=== PATIENT | female | born 1940 | race Caucasian/White ===

== ENCOUNTER 2016-03-18 12:13 | Emergency (ER) | payer MEDICARE ==
[2014-12-31 05:45] VITALS: BMI 43.1
[~2016-03-18 12:13] MED LIST: ARICEPT5 MG PO; ASPIRIN81 MG PO; ATIVAN0.5 MG PO; BRILINTA90 MG PO; CELEXA20 MG PO; GLUCOPHAGE1000 MG PO; LANTUS SOL100 UNIT/1 SC; LOPRESSOR25 MG PO; NAPROSYN500 MG PO; NORCO 10/325 TA1 TA1 PO; NORCO 7.5/325 T1 TA1 PO; POTASSIUM99 M1 PO; PRAVACHOL10 MG PO; QVAR8.7 G1 INH; ROBAXIN500 MG PO; TYLENOL W/CODEI1 TAB PO; ZANAFLEX4 MG PO
[2016-03-18 13:13] LABS: BASOPHILS 0.2 % (0.0-2.0); EOSINOPHILS 4.4 % (0-7); HEMATOCRIT 36.1 % (36.0-48.0); IMMATURE GRANULOCYTES 0.1 % (0-5); LYMPHOCYTES 28.6 % (15-50); MCH 27.7 pg (26.0-34.0); MCHC 30.5 g/dL (31.0-37.0); MCV 90.9 fL (80.0-100.0); MEAN PLATELET VOLUME 10.4 fL (7.4-10.4); MONOCYTES 9.3 % (2-11); NEUTROPHILS 57.4 % (40-80); RBC 3.97 10x6/uL (4.00-5.40); RDW 14.3 % (11.5-14.5); WBC 8.2 10x3/uL (4.8-10.8)
[2016-03-18 13:17] LABS: PLATELET COUNT 250 10x3/uL (130-400)
[2016-03-18 13:42] LABS: ALBUMIN 3.3 g/dL (3.4-5.0); ANION GAP 9.4 mmol/L (8-16); BILIRUBIN - TOTAL 0.26 mg/dL (0.2-1.3); CALCIUM 9.6 mg/dL (8.5-10.1); CARBON DIOXIDE 30.4 mmol/L (21.0-32.0); CREATININE - SERUM 1.1 mg/dL (0.6-1.3); POTASSIUM - SERUM 4.8 mmol/L (3.5-5.1); PROTEIN - SERUM 6.8 g/dL (6.4-8.2)
== END 2016-03-18 14:20 | disposition home or self-care (01) ==
LOC: D.ER 12:13
PROVIDERS: Emergency Medicine
DX: J20.9 Acute bronchitis, unspecified (principal); I50.9 Heart failure, unspecified; I10 Essential (primary) hypertension; J45.909 Unspecified asthma, uncomplicated; I25.10 Atherosclerotic heart disease of native coronary artery without angina pectoris; E11.9 Type 2 diabetes mellitus without complications; Z79.4 Long term (current) use of insulin

== ENCOUNTER 2016-05-27 19:06 | Emergency (ER) | payer MEDICARE ==
[2014-12-31 05:45] VITALS: BMI 43.1
[2016-05-27 19:59] LABS: BASOPHILS 0.2 % (0.0-2.0); EOSINOPHILS 2.2 % (0-7); HEMATOCRIT 35.8 % (36.0-48.0); HEMOGLOBIN 11.1 g/dL (12-16); IMMATURE GRANULOCYTES 0.2 % (0-5); MCV 93.5 fL (80.0-100.0); MEAN PLATELET VOLUME 10.6 fL (7.4-10.4); MONOCYTES 9.2 % (2-11); NEUTROPHILS 55.2 % (40-80); PLATELET COUNT 190 10x3/uL (130-400); RBC 3.83 10x6/uL (4.00-5.40); RDW 14.7 % (11.5-14.5)
[2016-05-27 20:14] LABS: ALBUMIN 3.6 g/dL (3.4-5.0); ANION GAP 8.9 mmol/L (8-16); BILIRUBIN - TOTAL 0.3 mg/dL (0.2-1.3); CALCIUM 9.3 mg/dL (8.5-10.1); CARBON DIOXIDE 30.7 mmol/L (21.0-32.0); CREATININE - SERUM 1.7 mg/dL (0.6-1.3); POTASSIUM - SERUM 4.6 mmol/L (3.5-5.1)
== END 2016-05-27 23:29 | disposition home or self-care (01) ==
LOC: D.ER 19:06
PROVIDERS: Emergency Medicine
DX: M25.512 Pain in left shoulder (principal); M25.562 Pain in left knee; M54.2 Cervicalgia; N28.9 Disorder of kidney and ureter, unspecified; I25.10 Atherosclerotic heart disease of native coronary artery without angina pectoris; E11.9 Type 2 diabetes mellitus without complications; Z79.4 Long term (current) use of insulin; I10 Essential (primary) hypertension; Z91.81 History of falling

== ENCOUNTER 2016-12-27 10:43 | Emergency (ER) | payer MEDICARE ==
[2014-12-31 05:45] VITALS: BMI 43.1
[2016-12-27 11:58] LABS: BASOPHILS 0.1 % (0-2); HEMATOCRIT 35.6 % (36.0-48.0); HEMOGLOBIN 11.4 g/dL (12-16); IMMATURE GRANULOCYTES 0.2 % (0-5); LYMPHOCYTES 17.4 % (15-50); MCH 30.5 pg (26.0-34.0); MCV 95.2 fL (80.0-100.0); MONOCYTES 9.5 % (2-11); NEUTROPHILS 71.8 % (40-80); RBC 3.74 10x6/uL (4.00-5.40); RDW 14.6 % (11.5-14.5); WBC 8.4 10x3/uL (4.8-10.8)
[2016-12-27 11:59] LABS: PLATELET COUNT 240 10x3/uL (130-400)
[2016-12-27 12:25] LABS: ALBUMIN 3.2 g/dL (3.4-5.0); ANION GAP 9.5 mmol/L (8-16); BILIRUBIN - TOTAL 0.17 mg/dL (0.2-1.3); CARBON DIOXIDE 28.8 mmol/L (21.0-32.0); CREATININE - SERUM 1.6 mg/dL (0.6-1.3); POTASSIUM - SERUM 5.3 mmol/L (3.5-5.1); PROTEIN - SERUM 6.6 g/dL (6.4-8.2)
== END 2016-12-27 18:00 | disposition home or self-care (01) ==
LOC: D.ER 10:43
PROVIDERS: Physician Assistant
DX: I95.1 Orthostatic hypotension (principal); M25.551 Pain in right hip; M25.552 Pain in left hip; M54.5 Low back pain; M25.561 Pain in right knee; Z86.79 Personal history of other diseases of the circulatory system; Z86.39 Personal history of other endocrine, nutritional and metabolic disease; E87.5 Hyperkalemia; N28.9 Disorder of kidney and ureter, unspecified; R00.1 Bradycardia, unspecified

== ENCOUNTER 2017-01-09 08:02 | Outpatient (CLI) | payer MEDICARE ==
--- NOTE | ~2017-01-09 | HEMODYNAMI ---
PATIENT:MEL NOVOA MEDICAL RECORD: [id number] : 40 [facility] ADMISSION DATE: 01/09/17 Generatedon:01/10/201714:06 Patient name: MEL NOVOA Patient #: [id number] SSN: D OB: 1940 Date of study: 01/10/2017 Page: Of Hemodynamic Procedure Report Patient Data Patient Demographics Procedure consent was obtained First Name: MEL Gender: Female Last Name: BRIGHT : 1940 [facility] Initial: R Age: 76 year(s) Patient #: [id number] Race: Unknown Additional ID: [id number] Contact details [address]: [address] [place] [address] State: [place] City: [place] Zip code: [address] Admission Admission Data Admission Date: 01/09/2017 Admission Time: 8:02 Room #: D.2115 Procedure Procedure Types Cath Procedure PCI Procedure Coronary Stent Initial Procedure Description Procedure Date Procedure Date: 01/10/2017 Procedure Start Time: 13:49 Procedure End Time: 14:06 Procedure Staff Name Function Byron Kiser MD Performing Physician Lindsay Braun RT Scrub Adrian Montejo RN Nurse Umebrto Meyers RT Monitor Procedure Data Cath Procedure Fluoroscopy Diagnostic fluoroscopy Total fluoroscopy Time: 2.6 time: 2.6 min min Diagnostic fluoroscopy Total fluoroscopy dose: 264 dose: 264 mGy mGy Contrast Material Contrast Material Type Amount (ml) Isovue 300 33 Entry Location Entry Primary Successful Side Size Upsize Upsize Entry Closure Succes sful Closure Location (Fr) 1 (Fr) 2 (Fr) Remarks Device Remarks Femoral Left 6 Fr Exoseal artery Short Estimated blood loss: 10 ml Procedure Medications Medication Administration Route Dosage Oxygen NC 2 l/min Heparin Flush Bag added to field 2 bags (1000units/500ml NS) 0.9% NaCl I.V. 100 ml/hr Fentanyl I.V. 50 mcg Versed I.V. 1 mg Fentanyl I.V. 50 mcg Heparin Bolus I.V. 4000 units Versed I.V. 1 mg Hemodynamics Rest Heart Rate: 53 (bpm) Snapshots Pre Cath Intra NCS Post Cath Vital Signs Time Heart Resp SPO2 etCO2 NIBP (mmHg) Rhythm Pain Sedation Rate (ipm) (%) (mmHg) Status Level (bpm) 13:43:29 60 19 100 40.2 156/75(124) NSR 0 (11) 10(A) , No pain 13:48:24 57 17 100 37.2 167/77(146) NSR 0 (11) 10(A) , No pain 13:53:11 59 17 97 11.8 127/65(113) NSR 0 (11) 9(A) , No pain 13:57:58 66 18 99 30.5 128/70(116) NSR 0 (11) 9(A) , No pain 14:02:45 63 12 99 0 135/66(106) NSR 0 (11) 9(A) , No pain Medications Time Medication Route Dose Verified Delivered Reason Notes Effectiveness by by 13:42:21 Oxygen NC 2 Byron Campbell Per physician l/min Rashel Montejo RN 13:42:40 Heparin Flush added 2 Byron Campbell used for Bag to bags Rashel Montejo RN procedure (1000units/500ml field NS) 13:42:51 0.9% NaCl I.V. 100 Byron Campbell Per physician ml/hr Rashel Montejo RN 13:48:43 Fentanyl I.V. 50 Byron Hiy for sedation mcg Rashel Montejo RN 13:48:52 Versed I.V. 1 mg Byron Hiy for sedation Rashel Montejo RN 13:52:18 Fentanyl I.V. 50 Byron Hiy for sedation mcg Rashel Montejo RN 13:52:34 Heparin Bolus I.V. 4000 Byron Campbell for units Rashel Montejo RN anticoagulation 13:57:19 Versed I.V. 1 mg Byron Hiy for sedation Rashel Montejo RN Procedure Log Time Note 13:13:38 PCI Cath Status : Elective 13:14:04 Umberto Meyers RT(R) (CV) sent for patient. Start room use. 13:30:50 Patient received from Med II to CCL 1 Alert and oriented. Tansferred to table in Supine position. 13:30:52 Warm blankets applied, and héctor hugger turned on for patient comfort. 13:30:53 Correct patient and procedure confirmed by team. 13:30:54 Correct patient and procedure confirmed by team. 13:30:55 Signed procedure consent form obtained from patient. 13:30:56 ECG and BP/O2 sat monitors applied to patient. 13:42:21 Oxygen 2 l/min NC was administered by Adrian Montejo RN; Per physician; 13:42:24 Vital chart was started 13:42:40 Heparin Flush Bag (1000units/500ml NS) 2 bags added to field was administered by Adrian Montejo RN; used for procedure; 13:42:51 0.9% NaCl 100 ml/hr I.V. was administered by Adrian Montejo RN; Per physician; 13:44:59 Baseline sample Acquired. 13:45:24 Rhythm: sinus rhythm 13:45:33 Pre-procedure instructions explained to patient. 13:45:34 Pre-op teaching completed and patient verbalized understanding. 13:45:38 Family in patients room. 13:45:40 Patient NPO since Breakfast. 13:45:47 Is the patient allergic to Iodine/contrast media? No. 13:45:49 Is patient on blood thinner?Yes 13:45:53 ACC The patient was administered the following blood thiners within the last 24 hours: ACCPlavix 13:45:56 Patient diabetic? Yes. 13:46:25 If diabetic: On Metformin? Yes 13:47:02 If on Metformin: Last Dose? 01/06/2017 13:47:16 ----Pre-sedation anethsthesia assessment.---- 13:47:19 Previous problem with sedation/anesthesia? No ? 13:47:20 Snore? Yes 13:47:22 Sleep apnea? No 13:47:23 Deviated septum? No 13:47:24 Opens mouth fully? Yes 13:47:25 Sticks out tongue? Yes 13:47:32 Airway obstruction? Yes ASTHMA 13:47:45 Dentures? Yes IN TIGHT 13:47:54 Patient pain scale 0/10 ?. 13:48:16 IV patent on arrival in right antecubital with 0.9% NaCl at [facility]. 13:48:22 Left groin area was prepped with chlora-prep and draped in sterile fashion 13:48:24 Alarms reviewed by R. N. 13:48:25 Sharps counted by scrub and verified by R.N. 13:48:27 Physician arrived 13:48:27 --------ALL STOP TIME OUT------ 13:48:28 Final Timeout: patient, procedure, and site verified with staff and physician. All members of the team are in agreement. 13:48:30 Left groin site verified by team. 13:48:35 Physical assessment completed. ASA score P 2 - A patient with mild systemic disease as per Byron Kiser MD. 13:48:39 Sedation plan: IV Moderate Sedation Versed, Fentanyl 13:48:43 Fentanyl 50 mcg I.V. was administered by Adrian Montejo RN; for sedation; 13:48:49 Use device set Femoral PCI 13:48:51 Acist Syringe opened to sterile field. 13:48:51 Acist Hand Control opened to sterile field. 13:48:52 Versed 1 mg I.V. was administered by Adrian Montejo RN; for sedation; 13:48:52 Bag Decanter opened to sterile field. 13:48:52 Medline Cath Pack opened to sterile field. 13:48:53 Terumo 6Fr [place] Sheath opened to sterile field. 13:48:54 St Sandip 260cm J .035 wire opened to sterile field. 13:48:54 Merit BasixCompak Inflation Kit opened to sterile field. 13:48:56 Acist Manifold opened to sterile field. 13:48:56 Tegaderm 4 x 4 opened to sterile field. 13:49:28 Procedure started. 13:49:29 Full Disclosure recording started 13:49:47 Local anesthetic to left femerol artery with Lidocaine 2% by Byron Kiser MD.INITIAL ACCESS ONLY 13:50:10 A 6 Fr Short sheath was inserted into the Left Femoral artery 13:50:56 Zero performed for pressure channel P1 13:51:21 Cordis 6FR XBLAD 4.0 guide catheter opened to sterile field. 13:52:18 Fentanyl 50 mcg I.V. was administered by Adrian Montejo RN; for sedation; 13:52:34 Heparin Bolus 4000 units I.V. was administered by Adrina Montejo RN; for anticoagulation; 13:54:09 6 Fr XBLAD 4 guide catheter was inserted over the wire 13:54:24 WHISPER wire advanced. 13:54:32 Wire advanced across lesion. 13:55:08 Inflation Number: 1 A Piyush OTW 3.5 x 18 stent was prepped and advanced across the Mid CX. The stent was deployed at 19 FLETCHER for 0:10 (min:sec). 13:56:06 Wire removed. 13:56:10 Wire redirected to LAD. 13:56:50 Wire advanced across lesion. 13:57:19 Versed 1 mg I.V. was administered by Adrian Montejo RN; for sedation; 13:57:28 Inflation Number: 1 A Divide OTW 3.5 x 12 stent was prepped and advanced across the Prox LAD. The stent was deployed at 19 FLETCHER for 0:10 (min:sec). 13:57:35 Stent catheter was removed intact over wire. 13:57:36 Wire removed. 13:57:37 Guide catheter removed. 13:57:52 Cordis 6Fr Exoseal opened to sterile field. 13:59:22 Sheath removed intact; hemostasis achieved with Exoseal to the Left Femoral artery. 13:59:24 Procedure ended.(Physican Out) 13:59:30 Fluoroscopy time 02.60 minutes. 14:00:12 Fluoroscopy dose: 264 mGy 14:00:12 Flurop Dose total: 264 14:00:18 Contrast amount:Isovue 300 33ml. 14:00:21 Sharps counted by scrub and verified by R.N. 14:02:15 Insertion/operative site no bleeding no hematoma. 14:02:19 Post-op/insertion site Left Femoral artery dressed using a 4 x 4 and Tegaderm. 14:02:34 Post left femerol artery:stable 14:02:53 Post-procedure physical assessment completed. ASA score P 2 - A patient with mild systemic disease as per Byron Kiser MD. 14:02:59 Post procedure rhythm: sinus rhythm 14:03:28 Estimated blood loss: 10 ml 14:04:04 Post procedure instruction explained to patient.Patient verbalizes understanding. 14:04:05 Patient needs reinforcement of post procedure teaching. 14:04:15 Procedure and supply charges have been captured, reviewed, submitted and are correct. 14:05:59 Vital chart was stopped 14:06:00 See physician's report for complete and final results. 14:06:07 Report given to PCU. 14:06:13 Patient transfered to PCU with Bed. 14:06:16 Procedure ended. 14:06:16 Full Disclosure recording stopped 14:06:21 End room use (Document Last) Intervention Summary Intervention Notes Time ActionType Lesion and Equipment Action# Pressure Duration Attributes Used 13:55:08 Place stent Mid CX Divide OTW 1 19 00:10 3.5 x 18 stent 13:57:28 Place stent Prox LAD Piyush OTW 1 19 00:10 3.5 x 12 stent Device Usage Item Name Manufacture Quantity Catalog Hospital Part Current Minima l Lot# / Number Charge Number Stock Stock Serial# Code Acist Acist 1 [id number] [id number] [id number] [id number] 20 Syringe [employer] Inc Acist Hand Acist 1 02563 928888 041686 533558 5 Control [employer] Inc Bag Microtek 1 2002S 799149 95607 522094 5 [employer]Sling[employer] Inc. Medline Cardinal 1 [id number] 570742 31947 314873 5 Cath Pack Health Terumo 6Fr Terumo 1 [id number] 007370 125253 350833 [address] [place] Sand[address] St Sandip 1 [id number] 969928 594670 345560 30 260cm J .035 wire Merit Merit 1 [id number] 928580 793429 428293 15 BasixZenprisek Medical Inflation Kit Acist Acist 1 57768 710440 637811 552966 5 Manifold [employer] Inc Tegaderm 4 3M 1 1626W 049754 619621 188397 5 x 4 Cordis 6FR Cardinal 1 [id number] 698369 186515 063094 3 XBLAD 4.0 Health guide catheter Piyush OTW Medtronic 1 [id number] 255356 6706280 663437 5 [id number] 3.5 x 18 stent Piyush OTW Medtronic 1 [id number] 424765 9445551 171810 5 [id number] 3.5 x 12 stent Cordis 6Fr Cardinal 1 EX600 604360 659619 302316 10 Qoopl Signature Audit [place] Stage Time Signature Unsigned Intra-Procedure 01/10/2017 Umberto Meyers 2:06:52 PM RT(R) (CV) Signatures Monitor : Umberto Meyers RT Signature : Date : Time : [address] [place] [address]
--- NOTE | ~2017-01-09 | HEMODYNAMI ---
PATIENT:MEL NOVOA MEDICAL RECORD: [id number] : 40 LOCATION:D.CAT ADMISSION DATE: 01/09/17 Generatedon:01/09/201712:31 Patient name: MEL NOVOA Patient #: [id number] SSN: D OB: 1940 Date of study: 01/09/2017 Page: Of Hemodynamic Procedure Report Patient Data Patient Demographics Procedure consent was obtained First Name: MEL Gender: Female Last Name: BRIGHT : 1940 Middle Initial: R Age: 76 year(s) Patient #: [id number] Race: Unknown Additional ID: [id number] Contact details [address]: [address] [place] [address] State: [place] City: [place] Zip code: [address] Admission Admission Data Admission Date: 01/09/2017 Admission Time: 8:02 Procedure Procedure Types Cath Procedure Diagnostic Procedure LHC LHC w/Coronaries FFR/IVUS Intra-Coronary IVUS Initial PCI Procedure Coronary Stent Initial Miscellaneous Procedures Moderate Sedation up to 30 minutes Peripheral Cath Diagnostic Procedure Cath Peripheral Four Vessel Arteriogram Procedure Description Procedure Date Procedure Date: 01/09/2017 Procedure Start Time: 12:09 Procedure End Time: 12:30 Procedure Staff Name Function Byron Kiser MD Performing Physician Magalie Gill RN Nurse Lindsay Braun RT Scrub Kwasi Ingram RT Monitor Procedure Data Cath Procedure Fluoroscopy Diagnostic fluoroscopy Total fluoroscopy Time: 5.1 time: 5.1 min min Diagnostic fluoroscopy Total fluoroscopy dose: 839 dose: 839 mGy mGy Contrast Material Contrast Material Type Amount (ml) Isovue 300 143 Entry Location Entry Primary Successful Side Size Upsize Upsize Entry Closure Succes sful Closure Location (Fr) 1 (Fr) 2 (Fr) Remarks Device Remarks Femoral Right 5 Fr 6 Fr Exoseal artery Short Estimated blood loss: 10 ml Diagnostic catheters Device Type Used For End Catheter Placement Cordis 5Fr Pigtail Procedure Catheter (MP) Cordis 5Fr JL 4.0 Procedure Catheter (MP) Cordis 5Fr 3DRC Catheter Procedure (MP) Procedure Complications No complications Procedure Medications Medication Administration Route Dosage Oxygen NC 2 l/min Heparin Flush Bag added to field 2 bags (1000units/500ml NS) Lidocaine 2% added to field 20 Fentanyl I.V. 50 mcg Versed I.V. 1 mg Fentanyl I.V. 50 mcg Versed I.V. 1 mg Heparin Bolus I.V. 4000 units Integrilin (Bolus I.V. 9.5 ml 2mg/ml) Hemodynamics Rest Heart Rate: 51 (bpm) Pressure Samples Time Site Value (mmHg) Purpose Heart Use Rate(bpm) 12:19 AO 165/63(100) Snapshot 54 Snapshots Pre Cath Intra NCS Post Cath Vital Signs Time Heart Resp SPO2 etCO2 NIBP (mmHg) Rhythm Pain Sedation Rate (ipm) (%) (mmHg) Status Level (bpm) 11:31:24 62 17 94 0 159/81(136) NSR 0 (11) 10(A) , No pain 11:37:04 52 20 100 29.3 185/68(143) NSR 0 (11) 10(A) , No pain 11:42:42 50 18 100 41.4 147/56(110) NSR 0 (11) 10(A) , No pain 11:48:09 53 16 99 39.1 161/61(112) NSR 0 (11) 10(A) , No pain 11:53:31 49 16 100 41.3 155/68(114) NSR 0 (11) 10(A) , No pain 11:58:20 48 17 100 39.1 166/64(105) NSR 0 (11) 10(A) , No pain 12:03:07 49 16 100 38.3 152/63(103) NSR 0 (11) 9(A) , No pain 12:07:55 49 18 100 0 150/59(91) NSR 0 (11) 9(A) , No pain 12:13:29 54 10 100 38.3 167/65(114) NSR 0 (11) 9(A) , No pain 12:18:20 55 16 100 41.3 164/69(121) NSR 0 (11) 9(A) , No pain 12:23:03 54 16 100 41.3 144/63(106) NSR 0 (11) 9(A) , No pain 12:28:28 55 11 100 39.8 163/68(124) NSR 0 (11) 9(A) , No pain Medications Time Medication Route Dose Verified Delivered Reason Notes Effectiveness by by 11:30:05 Oxygen NC 2 Magalie Magalie used for l/min Gill Gill package designer RN 11:30:16 Heparin Flush added 2 Magalie Magalie used for Bag to bags Gill Gill procedure (1000units/500ml field RN RN NS) 11:30:25 Lidocaine 2% added 20ml Magalie Magalie used for to vial Gill Gill procedure field RN RN 12:08:47 Fentanyl I.V. 50 Magalie Magalie for sedation mcg Gill Gill RN RN 12:08:57 Versed I.V. 1 mg Magalie Magalie for sedation Gill Gill RN RN 12:11:32 Fentanyl I.V. 50 Magalie Magalie for sedation mcg Gillqian Gill RN RN 12:11:36 Versed I.V. 1 mg Magalie Magalie for sedation Gill Gill RN RN 12:19:08 Integrilin I.V. 9.5 Magalie Magalie for 0.5ml (Bolus 2mg/ml) ml Gill Gill anticoagulation integrilin RN RN wasted 12:19:08 Heparin Bolus I.V. 4000 Magalie Magalie for units Gill Gill anticoagulation RN fishing instructor Log Time Note 11:05:25 Kwasi Ingram RT(R) sent for patient. Start room use. 11:05:25 Time tracking: Regular hours 11:05:29 Plan of Care:Hemodynamics will remain stable., Cardiac rhythm will remain stable., Comfort level will be maintained., Respiratory function will remain adequate., Patient/ family verbilizes understanding of procedure., Procedure tolerated without complication., Recovers from procedure without complications.. 11:21:33 H&P Date Dictated: 01/01/2017 Within 30 days and on chart., H&P Addendum completed by physician on day of procedure. (MUST COMPLETE FOR ALL OUTPATIENTS). 11:24:13 Patient received from Pre/Post Procedure Room to CCL 1 Alert and oriented. Tansferred to table in Supine position. 11:24:15 Warm blankets applied, and héctor hugger turned on for patient comfort. 11:24:16 Correct patient and procedure confirmed by team. 11:24:17 Signed procedure consent form obtained from patient. 11:24:19 ECG and BP/O2 sat monitors applied to patient. 11:25:02 Procedure type changed to Cath procedure, Diagnostic procedure, LHC, LHC w/Coronaries, FFR/IVUS, Intra-Coronary IVUS Initial, PCI procedure, Coronary Stent Initial, Miscellaneous Procedures, Moderate Sedation up to 30 minutes, Peripheral Cath Diagnostic Procedure, Cath Peripheral, Four Vessel Arteriogram 11:30:05 Oxygen 2 l/min NC was administered by Magalie Gill RN; used for procedure; 11:30:16 Heparin Flush Bag (1000units/500ml NS) 2 bags added to field was administered by Magalie Gill RN; used for procedure; 11:30:25 Lidocaine 2% 20ml vial added to field was administered by Magalie Gill RN; used for procedure; 11:30:29 Vital chart was started 11:38:30 Baseline sample Acquired. 11:38:35 Rhythm: sinus rhythm 11:38:37 Full Disclosure recording started 11:38:39 Pre-procedure instructions explained to patient. 11:38:40 Pre-op teaching completed and patient verbalized understanding. 11:38:47 Family in waiting room. 11:38:49 Patient NPO since Midnight. 11:38:50 Is the patient allergic to Iodine/contrast media? No. 11:40:32 Is patient on blood thinner?No 11:40:37 Patient diabetic? Yes. 11:40:38 If diabetic: On Metformin? Yes 11:40:40 If on Metformin: Last Dose? 01/06/2017 11:40:43 Patient not . Patient is over age 55. 11:40:44 Previous problem with sedation/anesthesia? No ? 11:41:10 Snore? No 11:41:11 Sleep apnea? No 11:41:12 Deviated septum? No 11:41:13 Opens mouth fully? Yes 11:41:14 Sticks out tongue? Yes 11:41:20 Airway obstruction? Yes Asthma 11:41:29 Dentures? Yes IN 11:41:32 Pre procedure: right dorsailis pedis pulse 1+ Palpable, but thready & weak; easily obliterated 11:41:37 Patient pain scale 0/10 ?. 11:41:45 IV patent on arrival in right forearm with 0.9% NaCl at KVO. 11:41:47 Lab results completed and on chart. 11:41:56 Right groin area was prepped with chlora-prep and draped in sterile fashion 11:41:59 Alarms reviewed by R. N. 11:41:59 Sharps counted by scrub and verified by R.N. 11:42:06 Use device set Femoral Dx 11:42:08 Tegaderm 4 x 4 opened to sterile field. 11:42:09 Acist Hand Control opened to sterile field. 11:42:10 Acist Manifold opened to sterile field. 11:42:12 Acist Syringe opened to sterile field. 11:42:12 Bag Decanter opened to sterile field. 11:42:12 Medline Cath Pack opened to sterile field. 11:42:13 Terumo 5Fr [place] Sheath opened to sterile field. 11:42:13 St Sandip 260cm J .035 wire opened to sterile field. 11:42:16 Diagnostic Infinity 5Fr Multipack catheter opened to sterile field. 11:58:01 --------ALL STOP TIME OUT------ 11:58:01 Final Timeout: patient, procedure, and site verified with staff and physician. All members of the team are in agreement. 11:58:03 Right groin site verified by team. 11:58:06 Physical assessment completed. ASA score P 2 - A patient with mild systemic disease as per Byron Kiser MD. 11:58:09 Sedation plan: IV Moderate Sedation Versed, Fentanyl 12:08:37 Zero performed for pressure channel P1 12:08:39 Zero performed for pressure channel P1 12:08:47 Fentanyl 50 mcg I.V. was administered by Magalie Gill RN; for sedation; 12:08:57 Versed 1 mg I.V. was administered by Magalie Gill RN; for sedation; 12:09:29 Procedure started. 12:09:48 Local anesthetic to right femoral artery with Lidocaine 2% by Byron Kiser MD.INITIAL ACCESS ONLY 12:11:32 Fentanyl 50 mcg I.V. was administered by Magalie Gill RN; for sedation; 12:11:36 Versed 1 mg I.V. was administered by Magalie Gill RN; for sedation; 12:11:39 A 5 Fr sheath was inserted into the Right Femoral artery 12:11:54 A Cordis 5Fr Pigtail Catheter (MP) was advanced over the wire and used for Procedure. 12:12:13 LV angiography performed. 12:12:14 LV gram done using BAH 12:12:21 EF : 55 % 12:12:24 Injector settings: Ml/sec: 10, Volume: 20, 12:12:27 Catheter removed. 12:12:32 A Cordis 5Fr JL 4.0 Catheter (MP) was advanced over the wire and used for Procedure. 12:13:03 LCA angiography performed. 12:13:33 Catheter removed. 12:13:39 MyGoodPointsumPlayCrafter 6Fr [place] Sheath opened to sterile field. 12:13:39 plistaixCompak Inflation Kit opened to sterile field. 12:13:40 Sherpaaisper J 300cm 0.014 guide wire opened to sterile field. 12:13:46 A Cordis 5Fr 3DRC Catheter (MP) was advanced over the wire and used for Procedure. 12:14:19 RCA angiography performed. 12:14:46 [place] Launcher 6Fr 3DRC SH guide catheter opened to sterile field. 12:14:47 xCloud [place] IVUS Catheter opened to sterile field. 12:15:03 Left subclavian angiography performed 12:15:05 Left carotid angiography performed. 12:15:11 Right subclavian angiography performed 12:16:25 Catheter removed. 12:16:42 Sheath upsized to a 6 Fr Short. 12:16:52 6 Fr 3DRC SH guide catheter was inserted over the wire 12:18:17 Whisper wire advanced. 12:19:02 Wire advanced across lesion. 12:19:08 Integrilin (Bolus 2mg/ml) 9.5 ml I.V. was administered by Magalie Gill RN; for anticoagulation; 0.5ml integrilin wasted 12:19:08 Heparin Bolus 4000 units I.V. was administered by Magalie Gill RN; for anticoagulation; 12:19:24 IVUS catheter advanced over wire. 12:20:09 IVUS pass to RCA lesion performed. 12:20:18 IVUS catheter removed over wire. 12:22:24 Inflation Number: 1 A Piyush OTW 3.0 x 22 stent was prepped and advanced across the Mid RCA. The stent was deployed at 15 FLETCHER for 0:10 (min:sec). 12:22:33 Inflation number: 2 The stent balloon was then re-inflated across the Mid RCA to 17 FLETCHER for 0:10 (min:sec). 12:23:13 Inflation number: 3 The stent balloon was then re-inflated across the Mid RCA to 21 FLETCHER for 0:10 (min:sec). 12::59 Inflation number: 4 The stent balloon was then re-inflated across the Mid RCA to 10 FLETCHER for 0:10 (min:sec). 12:24:44 Stent catheter was removed intact over wire. 12:24:54 Wire removed. 12:24:55 Guide catheter removed. 12:25:28 Cordis 6Fr Exoseal opened to sterile field. 12:25:44 Sheath removed intact; hemostasis achieved with Exoseal to the Right Femoral artery. 12:25:47 Procedure ended.(Physican Out) 12::17 Fluoroscopy time 05.10 minutes. 12:26:21 Fluoroscopy dose: 839 mGy 12:: Flurop Dose total: 839 12:26:26 Contrast amount:Isovue 300 143ml. 12:26:31 Sharps counted by scrub and verified by R.N. 12:26:32 Insertion/operative site no bleeding no hematoma. 12:26:36 Post-op/insertion site Right Femoral artery dressed using a 4 x 4 and Tegaderm. 12:26:37 Post Procedure Pulses reassessed and unchanged 12::40 Post-procedure physical assessment completed. ASA score P 2 - A patient with mild systemic disease as per Byron Kiser MD. 12:26:42 Post procedure rhythm: unchanged. 12:26:45 Estimated blood loss: 10 ml 12::49 Post procedure instruction explained to patient.Patient verbalizes understanding. 12::49 Patient needs reinforcement of post procedure teaching. 12:27:26 Procedure and supply charges have been captured, reviewed, submitted and are correct. 12::29 Procedure Complication : No complications 12::56 Vital chart was stopped 12:: See physician's report for complete and final results. 12::59 Report given to PCU. 12:30:13 Patient transfered to PCU with Bed. 12:30:22 Procedure ended. 12:: Full Disclosure recording stopped 12::30 End room use (Document Last) Intervention Summary Intervention Notes Time ActionType Lesion and Equipment Action# Pressure Duration Attributes Used 12:22:24 Place stent Mid RCA [place] OTW 1 15 00:10 3.0 x 22 stent 12:22:33 Reinflate Mid RCA [place] OTW 2 17 00:10 stent 3.0 x 22 balloon stent 12:23:13 Reinflate Mid RCA [place] OTW 3 21 00:10 stent 3.0 x 22 balloon stent 12:23:59 Reinflate Mid RCA Piyush OTW 4 10 00:10 stent 3.0 x 22 balloon stent Device Usage Item Name Manufacture Quantity Catalog Hospital Part Current Minima l Lot# / Number Charge Number Stock Stock Serial# Code Tegaderm 4 3M 1 1626W [id number] 638695 485306 5 x 4 Acist Hand Acist 1 50464 566965 661619 396407 5 Control Phunware Systems [place] Acist Acist 1 22376 056840 317926 923862 5 yavalu Medical Systems [place] Acist Acist 1 88782 227956 496744 413933 20 Syringe Medical Systems [place] Bag Microtek 1 2002S 012666 06262 223804 5 QirraSound Technologies Inc. Medline Cardinal 1 [id number] 450466 53917 677649 5 Cath Pack Health Terumo 5Fr Terumo 1 BQT245 737148 317689 872768 [address] Sand[address] St Sandip 1 764437 546394 051978 956504 30 260cm J .035 wire Diagnostic Cardinal 1 [id number] 178232 03974 185642 30 Infinity Health 5Fr Multipack catheter Cordis 5Fr Cardinal 1 378234 5 Pigtail Health Catheter (MP) Cordis 5Fr Cardinal 1 937564 5 JL 4.0 Health Catheter (MP) Terumo 6Fr Terumo 1 OKQ695 081569 600493 776081 40 [place] Sheath Merit Merit 1 GH3967 001257 709867 659990 15 BasixInCommpak Medical Inflation Kit Rojas Rojas 1 [id number] 175615 497500 676989 5 Whisper J Vascular 300cm 0.014 guide wire Cordis 5Fr Cardinal 1 186921 5 3DRC Health Catheter (MP) Medtronic Medtronic 1 [id number] 233807 231410 539450 1 Launcher 6Fr 3DRC SH guide catheter Isola Isola 1 [id number] 451436 057703 794566 8 [place] IVUS Catheter [place] OTW Medtronic 1 [id number] 729776 0315959 147119 5 [id number] 3.0 x 22 stent Cordis 6Fr Cardinal 1 EX600 690441 380742 208192 10 [facility] Health Signature Audit [place] Stage Time Signature Unsigned Intra-Procedure 01/09/2017 Kwasi Ingram 12:31:43 PM RT(R) Signatures Monitor : Kwasi Ingram RT Signature : Date : Time : [place] [id number] [facility] [place] [address]
[2017-01-09] MEDS ORDERED: OMEPRAZOLE40 MG PO (09:15)
[2017-01-09] MEDS ORDERED: BAYER CHEWABLE81 MG PO (09:16)
[2017-01-09] MEDS ORDERED: HEALTHYLAX17 GM PO (09:17)
[2017-01-09] MEDS ORDERED: METAMUCIL FIB1 WAFER PO (09:18)
[2017-01-09] MEDS ORDERED: QVAR8.7 G1 INH (09:19)
[2017-01-09 09:22] VITALS: BP 185/66; BMI 43.5
[2017-01-09 09:32] LABS: BASOPHILS 0.3 % (0-2); EOSINOPHILS 3.1 % (0-7); HEMATOCRIT 37.5 % (36.0-48.0); HEMOGLOBIN 11.6 g/dL (12-16); IMMATURE GRANULOCYTES 0.1 % (0-5); LYMPHOCYTES 24.3 % (15-50); MCH 30.1 pg (26.0-34.0); MCHC 30.9 g/dL (31.0-37.0); MCV 97.2 fL (80.0-100.0); MEAN PLATELET VOLUME 9.8 fL (7.4-10.4); MONOCYTES 8.9 % (2-11); NEUTROPHILS 63.3 % (40-80); PLATELET COUNT 245 10x3/uL (130-400); RBC 3.86 10x6/uL (4.00-5.40); RDW 14.3 % (11.5-14.5); WBC 7.5 10x3/uL (4.8-10.8)
[2017-01-09 09:42] LABS: ANION GAP 8.6 mmol/L (8-16); CALCIUM 9.3 mg/dL (8.5-10.1); CARBON DIOXIDE 31.5 mmol/L (21.0-32.0); CREATININE - SERUM 1.3 mg/dL (0.6-1.3); POTASSIUM - SERUM 5.1 mmol/L (3.5-5.1)
--- NOTE | 2017-01-09 13:01 | NUR ---
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 VS WNL. RIGHT GROIN STABLE WITHOUT BLEEDING OR HEMATOMA NOTED. WILL MONITOR.
[2017-01-09 13:16] VITALS: BP 151/91; BMI 43.5
[2017-01-09] MEDS ORDERED: ARICEPT10 MG PO (19:24)
[2017-01-09] MEDS ORDERED: NAMENDA XR14 MG PO (19:25)
--- NOTE | 2017-01-09 20:16 | NUR ---
HS MEDS GIVEN, BS 130, LANTUS HELD DUE TO PT BEING NPO AFTER MN FOR CATH IN AM. REMINDED PT OF NOTHING TO EAT OR DRINK AFTER MN, PT STATED UNDERSTANDING. DAUGHTER SAID THAT SHE WILL BE BACK IN THE MORNING AROUND 5 AM TO SIGN CONSENTS.
[2017-01-09 22:06] VITALS: BP 143/96
--- NOTE | 2017-01-10 00:09 | NUR ---
UP WITH ASSIST TO BR, GAIT UNSTEADY.
[2017-01-10 01:54] VITALS: BP 145/68
--- NOTE | 2017-01-10 05:09 | NUR ---
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
--- NOTE | 2017-01-10 05:17 | NUR ---
CALL LIGHT IN REACH, WILL CONTINUE WITH PLAN OF CARE.
[2017-01-10 06:17] VITALS: BP 147/50
--- NOTE | 2017-01-10 07:30 | NUR ---
RESTING QUIETLY RESP UNLABORED DENIES ANY NEEDS OR DISCOMFORT AT THIS TIME
[2017-01-10 08:00] VITALS: BP 162/57
[2017-01-10 10:57] LABS: BASOPHILS 0.2 % (0-2); EOSINOPHILS 3.3 % (0-7); HEMATOCRIT 32.5 % (36.0-48.0); HEMOGLOBIN 10.2 g/dL (12-16); IMMATURE GRANULOCYTES 0.2 % (0-5); LYMPHOCYTES 28.2 % (15-50); MCH 30.4 pg (26.0-34.0); MCHC 31.4 g/dL (31.0-37.0); MEAN PLATELET VOLUME 9.7 fL (7.4-10.4); MONOCYTES 7.4 % (2-11); NEUTROPHILS 60.7 % (40-80); PLATELET COUNT 229 10x3/uL (130-400); RBC 3.35 10x6/uL (4.00-5.40); RDW 14.3 % (11.5-14.5); WBC 5.8 10x3/uL (4.8-10.8)
[2017-01-10 11:16] LABS: ALBUMIN 2.8 g/dL (3.4-5.0); ANION GAP 9.1 mmol/L (8-16); BILIRUBIN - TOTAL 0.27 mg/dL (0.2-1.3); CALCIUM 8.7 mg/dL (8.5-10.1); CARBON DIOXIDE 30.7 mmol/L (21.0-32.0); CREATININE - SERUM 1.3 mg/dL (0.6-1.3); POTASSIUM - SERUM 4.8 mmol/L (3.5-5.1)
[2017-01-10 11:47] VITALS: BP 158/77
--- NOTE | 2017-01-10 13:26 | NUR ---
TO ACCOUNT SUPPORT ANALYST VIA BED IN STABLE CONDITION
[2017-01-10] MEDS ORDERED: PLAVIX75 MG PO (14:24)
[2017-01-10 16:00] VITALS: BP 155/59
--- NOTE | 2017-01-10 18:45 | NUR ---
REVIEWED DISCHARGE INSTRUCTIONS WITH PT AND DAUGHTER BOTH STATE UNDERSTANDING COPY GIVEN DCD SALINE LOCK TO RFA WITH 22 GA IV CATHETER INTACT SITE FREE OF REDNESS OR EDEMA PT DISCHARGED HOME IN STABLE CONDITION LEFT UNIT VIA W/C WITH ALL PERSONAL BELONGINGS
--- NOTE | 2017-01-11 16:56 | OP ---
PATIENT NAME: MEL NOVOA MEDICAL RECORD: [id number] :40 LOCATION:D.CAT ADMISSION DATE: SURGEON: CARLOS A OCAMPO MD DATE OF OPERATION: 01/10/2017 PROCEDURES: 1. PTCA stent LAD. 2. PTCA stent left circumflex. 3. Selective coronary angiography. INDICATION: Angina and coronary artery disease. PROCEDURE IN DETAIL: After informed consent was obtained and after detailed explanation of risks, benefits as well as alternative therapies, the patient elected to proceed with angiogram and angioplasty. The left femoral area is prepped and draped in normal sterile fashion. Left femoral artery was cannulated via modified Seldinger technique with placement of 6-Gambian sheath. All catheters exchanged through this sheath. FINDINGS: Left circumflex has 80% stenosis in the proximal mid vessel. This was addressed with a 3.5 x 18 mm [place]. Left anterior descending has 80% stenosis proximally. This was addressed with a 3.0 x 12 mm [place]. Result was 0% residual throughout. OVERALL IMPRESSION: Successful percutaneous transluminal coronary angioplasty stent of the left anterior descending and circumflex, both going from 70% to 80% initial stenosis to 0% residual. TRANSINT:[id number] Voice Confirmation ID: [id number] DOCUMENT ID: [id number] CARLOS A OCAMPO MD at 1656 CC: [id number] DICTATION DATE: 01/10/17 1402 DOWEL MAKER: 01/10/17 1425 DEP CLI 01/10/17 [facility] [address] [place] [address]
--- NOTE | 2017-01-11 16:56 | DS ---
PATIENT:MEL NOVOA :40 MEDICAL RECORD: [id number] DISCHARGE SUMMARY ADMISSION DATE: 01/09/17 DISCHARGE DATE: 01/10/17 FINAL DIAGNOSES: 1. Angina. 2. Coronary artery disease. 3. PTCA stent RCA descending and left circumflex this admission. HOSPITAL COURSE: Mrs. Novoa presents with anginal symptomatology, found to have 3-vessel coronary artery disease, underwent successful PTCA stent in overall territories, had an uneventful postop course. She was discharged home with the addition of aspirin and Plavix to her medical regimen. We will follow up with [facility] in 1 month. TRANSINT:[id number] Voice Confirmation ID: [id number] DOCUMENT ID: [id number] CARLOS A OCAMPO MD at 1656 CC: [id number] DICTATION DATE: 01/10/17 1401 OPEN SOAPER TENDER: 01/10/17 1500 DEP CLI 01/10/17 [place] [address] [place] [address]
--- NOTE | 2017-02-01 14:14 | OP ---
PATIENT NAME: MEL NOVOA MEDICAL RECORD: [id number] :40 LOCATION:D.CAT ADMISSION DATE: SURGEON: CARLOS A OCAMPO MD DATE OF OPERATION: 01/09/2017 PROCEDURES: Four-vessel vertebral and carotid angiography. INDICATION: Dizziness, unsteady gait, carotid vascular disease. PROCEDURE IN DETAIL: After informed consent was obtained and after detailed explanation of risks, benefits as well as alternative therapies, the patient elected to proceed with angiogram. The right femoral area was prepped and draped in normal sterile fashion. The right femoral artery was cannulated via modified Seldinger technique with placement of 5-Tongan sheath. All catheters were exchanged through this sheath. FINDINGS: There was subselection of each subclavian as well as the left carotid. 1. Right side: The common internal and external carotids have mild plaquing, none greater than 20%, no flow-limiting stenosis. Vertebral arteries devoid of disease with no significant stenosis. 2. Left system: The common internal and external carotids have mild plaquing, none greater than 20%, no flow-limiting stenosis. Vertebral arteries devoid of disease. OVERALL IMPRESSION: Minimal carotid vascular disease is present. No flow-limiting stenosis. Symptomatology is not secondary to carotid vascular insufficiency. TRANSINT:[id number] Voice Confirmation ID: [id number] DOCUMENT ID: [id number] CARLOS A OCAMPO MD at 1414 CC: [id number] DICTATION DATE: 01/21/17 1025 HOME HEALTH ASSISTANT: 01/21/17 1104 DEP CLI 01/10/[address] [address]
--- NOTE | 2017-02-11 09:02 | OP ---
PATIENT NAME: MEL NOVOA MEDICAL RECORD: [id number] :40 LOCATION:D.CAT ADMISSION DATE: SURGEON: CARLOS A OCAMPO MD DATE OF OPERATION: 01/09/2017 PROCEDURES: 1. PTCA stent to RCA. 2. Left heart catheterization. 3. Selective coronary angiography. 4. Left ventriculogram. 5. Intravascular ultrasound. INDICATION: Angina and coronary artery disease. PROCEDURE IN DETAIL: After informed consent was obtained and after detailed explanation of risks, benefits as well as alternative therapies, the patient elected to proceed with angiogram and angioplasty. The right radial area was prepped and draped in normal sterile fashion. Right radial artery was cannulated via modified Seldinger technique with placement of 6-Spanish sheath. All catheters exchanged through this sheath. FINDINGS: Left ventriculogram was performed in standard 30-degree BAH view, reveals good cardiac wall motion throughout all segments. Overall ejection fraction estimated at 60%. SELECTIVE CORONARY ANGIOGRAPHY: 1. Left main showed no significant angiographic disease. 2. Left anterior descending has 80% stenosis proximally. 3. Left circumflex has 80% stenosis proximally. 4. Right coronary artery has greater than 80% stenosis confirmed by intravascular ultrasound throughout the mid vessel. PTCA STENT OF THE RIGHT CORONARY ARTERY: The stent used was a 3.0 x 22 mm [place]. Result was 0% residual stenosis. OVERALL IMPRESSION: Successful percutaneous transluminal coronary angioplasty stent of the right coronary artery going from 80% initial stenosis to 0% residual. PLAN: PTCA stent of the LAD and circumflex in the near future. TRANSINT:[id number] Voice Confirmation ID: [id number] DOCUMENT ID: [id number] CARLOS A OCAMPO MD at 0902 CC: [id number] DICTATION DATE: 02/06/17 1300 WELDER PRODUCTION LINE COMBINATION: 02/06/17 1309 [facility] CLI 01/10/17 [place] [address]
== END 2017-01-10 18:45 | disposition home or self-care (01) ==
LOC: D.CATH 08:02 → D.M2 12:49 → D.CATH 01-10 18:45
PROVIDERS: Family Medicine; Internal Medicine Interventional Cardiology
DX: I25.119 Atherosclerotic heart disease of native coronary artery with unspecified angina pectoris (principal); R55 Syncope and collapse; I10 Essential (primary) hypertension; E11.9 Type 2 diabetes mellitus without complications; Z01.812 Encounter for preprocedural laboratory examination
CPT/HCPCS: 36225; 36222; 92978; 93458; C9600 ×3

== ENCOUNTER 2017-04-13 14:36 | Inpatient (IN) | payer MEDICARE ==
[~2017-04-13] VITALS: Ht 154.9 cm; Wt 107.4 kg
--- NOTE | ~2017-04-13 | EC ---
PATIENT:MEL NOVOA DATE OF SERVICE: 04/15/17 SEX: F MEDICAL RECORD: [id number] DATE OF : 40 LOCATION:D.MS [place] AGE OF PATIENT: 76 ADMISSION DATE: 04/15/17 REFERRING PHYSICIAN: INTERPRETING PHYSICIAN: MARK ANTHONY CUELLAR MD ECHOCARDIOGRAM REPORT ECHO CHARGES 4 ECHO COMPLETE CLINICAL DIAGNOSIS: SYNCOPE/WEAKNESS ECHOCARDIOGRAPHIC MEASUREMENTS (adult normal given) AC root (d.<3.7cm) 3.2 cm LV Septum d (<1.2 cm> 1.4 cm Valve Excursion 1.2 cm LV Septum (systole) 2.0 cm Left Atria (s.<4.0cm> 3.1 cm LVPW d(<1.2cm) 1.5 cm RV (d.<2.3cm) 2.3 cm LVPW (sytole) 2.0 cm LV diastole(<5.6CM) 3.9 cm MV E-F(>70mm/sec) cm LV systole 2.6 cm LVOT Diameter 1.6 cm MV exc.(>10mm) cm Est.ejection fraction (50-75%) % Pericardial Effusion N DOPPLER: LVIT cm/sec A 103 cm/sec E 91.0 cm/sec LA cm/sec RVSP 30.1 mmHg LVOT 130 cm/sec AOP1/2T m/s Asc. Ao 203 cm/sec RVOT 125 cm/sec RA cm/sec PA 174 cm/sec AV Gradient Peak 17.0 mmHg AV Mean 7.6 mmHg AV Area 1.2 cm MV Gradient Peak 6.5 mmHg MV Mean 2.0 mmHg MV Area cm COMMENTS: Make Up Arranger: Zain PRATEROE Api Architect: 4 Dr. Cuellar TAPE# PACS DATE OF SERVICE: 04/14/2017 PROCEDURE: Transthoracic echocardiogram. FINDINGS: 1. The patient has moderate concentric left ventricular hypertrophy with an ejection fraction of 55%. There are no obvious regional wall motion abnormalities. There are inflow characteristics consistent with diastolic dysfunction. 2. The left atrium is not well visualized, but appears to be normal ECHOCARDIOGRAM REPORT [id number] MEL NOVOA structurally and normal in size. 3. The aortic valve is mildly sclerotic without stenoses. There is mild aortic insufficiency. There is no documented increased velocities across the aortic valve. 4. The mitral valve has mild mitral regurgitation, structurally is normal. There is mild annular calcification. 5. The tricuspid valve has normal structure, normal function. The RVSP was 30 mmHg. 6. The pericardium is normal. 7. The pulmonic valve is not well visualized. There is trace pulmonic insufficiency. 8. The right atrium is normal size and function. 9. The right ventricle is normal size, normal function. CONCLUSIONS: The patient has evidence of hypertensive heart disease, mild aortic sclerosis and mild aortic insufficiency. TRANSINT:[id number] Voice Confirmation ID: [id number] DOCUMENT ID: [id number] 04/18/2017 Edited to correct date of service, dmm. MARK ANTHONY CUELLAR MD CC: [id number] DICTATION DATE: 04/15/17 1110 HAND GRINDER: 04/15/17 1346 DIS IN 04/17/17 [place] [address] [place] [address]
[~2017-04-13 14:36] MED LIST changes: +ARICEPT10 MG PO; +BAYER CHEWABLE81 MG PO; +HEALTHYLAX17 GM PO; +METAMUCIL FIB1 WAFER PO; +NAMENDA XR14 MG PO; +OMEPRAZOLE40 MG PO; +PLAVIX75 MG PO
[2017-04-13 15:16] LABS: APPEARANCE HAZY (CLEAR); BILIRUBIN NEGATIVE (NEGATIVE); COLOR RED (YELLOW); GLUCOSE NEGATIVE (NEGATIVE); KETONE NEGATIVE (NEGATIVE); NITRITE POSITIVE (NEGATIVE); PROTEIN 2+ mg/dL (NEGATIVE); UROBILINOGEN NORMAL (NORMAL)
[2017-04-13 15:18] LABS: BACTERIA MODERATE /hpf (NONE SEEN); RED CELLS - URINE 0-5 /hpf (0-5)
[2017-04-13 15:19] LABS: AMORPHOUS SEDIMENT >1+ /lpf (NONE SEEN)
[2017-04-13 15:49] LABS: BASOPHILS 0.1 % (0-2); EOSINOPHILS 0.3 % (0-7); HEMATOCRIT 38.7 % (36.0-48.0); HEMOGLOBIN 11.7 g/dL (12-16); IMMATURE GRANULOCYTES 0.3 % (0-5); LYMPHOCYTES 5.5 % (15-50); MCH 26.7 pg (26.0-34.0); MCHC 30.2 g/dL (31.0-37.0); MCV 88.4 fL (80.0-100.0); MEAN PLATELET VOLUME 10.4 fL (7.4-10.4); MONOCYTES 5.8 % (2-11); PLATELET COUNT 250 10x3/uL (130-400); RBC 4.38 10x6/uL (4.00-5.40); RDW 14.3 % (11.5-14.5); WBC 17.9 10x3/uL (4.8-10.8)
[2017-04-13 16:06] LABS: ALBUMIN 3.6 g/dL (3.4-5.0); ALKALINE PHOSPHATASE 97 U/L (46-116); ALT (SGPT) 20 U/L (10-68); BILIRUBIN - TOTAL 0.28 mg/dL (0.2-1.3); CALC OSMOLALITY 300 mosm/kg (275-300); CALCIUM 8.8 mg/dL (8.5-10.1); CARBON DIOXIDE 25.8 mmol/L (21.0-32.0); CHLORIDE - SERUM 105 mmol/L (98-107); CREATININE - SERUM 1.8 mg/dL (0.6-1.3); POTASSIUM - SERUM 5.7 mmol/L (3.5-5.1); PROTEIN - SERUM 6.7 g/dL (6.4-8.2); SODIUM 142 mmol/L (136-145); UREA NITROGEN 42 mg/dL (7-18); eGFR NON AFRICAN AMERICAN 29 mL/min (90-120)
[2017-04-13 16:07] LABS: GLUCOSE 225 mg/dL (74-106)
[2017-04-13 16:19] LABS: CKMB 1.2 U/L (0.0-3.6); CREATINE KINASE 112 UL (21-215); PRO BNP 97 pg/mL (0-450); TROPONIN-I < 0.017 ng/mL (0.000-0.060)
[2017-04-13] MEDS ORDERED: NAMENDA5 MG PO (23:10)
[2017-04-13] MEDS ORDERED: PRINIVIL20 MG PO (23:12)
[2017-04-13 23:17] LABS: CKMB 1.6 U/L (0.0-3.6); CREATINE KINASE 111 UL (21-215); TROPONIN-I < 0.017 ng/mL (0.000-0.060)
[2017-04-14] VITALS (8 sets, daily range): BP systolic 98–150; BP diastolic 35–89; Ht 154.9 cm; Wt 107.4 kg
[2017-04-14 06:37] LABS: BASOPHILS 0.1 % (0-2); EOSINOPHILS 0.9 % (0-7); HEMATOCRIT 31.8 % (36.0-48.0); HEMOGLOBIN 9.6 g/dL (12-16); IMMATURE GRANULOCYTES 0.3 % (0-5); LYMPHOCYTES 19.3 % (15-50); MCH 26.4 pg (26.0-34.0); MCHC 30.2 g/dL (31.0-37.0); MCV 87.6 fL (80.0-100.0); MEAN PLATELET VOLUME 10.5 fL (7.4-10.4); NEUTROPHILS 68.4 % (40-80); PLATELET COUNT 219 10x3/uL (130-400); RBC 3.63 10x6/uL (4.00-5.40); RDW 14.6 % (11.5-14.5); WBC 7.8 10x3/uL (4.8-10.8)
[2017-04-14 07:22] LABS: CKMB 2.3 U/L (0.0-3.6); CREATINE KINASE 148 UL (21-215)
[2017-04-14 07:25] LABS: TROPONIN-I < 0.017 ng/mL (0.000-0.060)
[2017-04-14 07:42] LABS: CALC OSMOLALITY 293 mosm/kg (275-300); CALCIUM 8.3 mg/dL (8.5-10.1); CARBON DIOXIDE 22.8 mmol/L (21.0-32.0); CHLORIDE - SERUM 111 mmol/L (98-107); CREATININE - SERUM 1.5 mg/dL (0.6-1.3); POTASSIUM - SERUM 4.9 mmol/L (3.5-5.1); SODIUM 143 mmol/L (136-145); UREA NITROGEN 38 mg/dL (7-18); eGFR NON AFRICAN AMERICAN 36 mL/min (90-120)
[2017-04-14 07:44] LABS: GLUCOSE 105 mg/dL (74-106)
[2017-04-14 09:19] LABS: HEMATOCRIT 32.8 % (36.0-48.0); HEMOGLOBIN 9.9 g/dL (12-16)
[2017-04-14 09:45] LABS: CKMB 2.7 U/L (0.0-3.6); CREATINE KINASE 188 UL (21-215)
[2017-04-14 09:46] LABS: TROPONIN-I < 0.017 ng/mL (0.000-0.060)
[2017-04-14 13:15] LABS: HEMATOCRIT 33.4 % (36.0-48.0); HEMOGLOBIN 10.1 g/dL (12-16)
[2017-04-14 17:42] LABS: HEMATOCRIT 32.4 % (36.0-48.0); HEMOGLOBIN 9.9 g/dL (12-16)
[2017-04-15 00:55] VITALS: BP 122/38
[2017-04-15 04:23] VITALS: BP 139/56
[2017-04-15 04:37] LABS: BASOPHILS 0.2 % (0-2); EOSINOPHILS 2.5 % (0-7); HEMATOCRIT 29.3 % (36.0-48.0); HEMOGLOBIN 8.8 g/dL (12-16); IMMATURE GRANULOCYTES 0.2 % (0-5); LYMPHOCYTES 23.1 % (15-50); MCH 26.1 pg (26.0-34.0); MCV 86.9 fL (80.0-100.0); MEAN PLATELET VOLUME 10.5 fL (7.4-10.4); MONOCYTES 10.6 % (2-11); NEUTROPHILS 63.4 % (40-80); PLATELET COUNT 206 10x3/uL (130-400); RBC 3.37 10x6/uL (4.00-5.40); RDW 14.7 % (11.5-14.5); WBC 6.3 10x3/uL (4.8-10.8)
[2017-04-15 05:02] LABS: APTT 26.9 SECONDS (22.8-39.4); INR 1.1 (0.85-1.17); PROTIME 13.8 SECONDS (11.6-15.0)
[2017-04-15 05:13] LABS: BILIRUBIN - TOTAL 0.13 mg/dL (0.2-1.3); CALCIUM 8.1 mg/dL (8.5-10.1); CARBON DIOXIDE 25.1 mmol/L (21.0-32.0); CREATININE - SERUM 1.3 mg/dL (0.6-1.3); PROTEIN - SERUM 5.5 g/dL (6.4-8.2)
[2017-04-15 05:18] LABS: ALBUMIN 2.6 g/dL (3.4-5.0)
[2017-04-15 05:32] LABS: ANION GAP 11.7 mmol/L (8-16); POTASSIUM - SERUM 4.8 mmol/L (3.5-5.1)
[2017-04-15 08:15] VITALS: BP 132/50
[2017-04-15 12:53] VITALS: BP 138/54
[2017-04-15 16:02] VITALS: BP 159/67
[2017-04-15 19:42] VITALS: BP 113/59
[2017-04-16 04:00] VITALS: BP 131/53
[2017-04-16 04:52] LABS: BASOPHILS 0.2 % (0-2); EOSINOPHILS 3.5 % (0-7); HEMATOCRIT 30.1 % (36.0-48.0); IMMATURE GRANULOCYTES 0.2 % (0-5); LYMPHOCYTES 25.1 % (15-50); MCH 26.2 pg (26.0-34.0); MCHC 29.9 g/dL (31.0-37.0); MCV 87.8 fL (80.0-100.0); MEAN PLATELET VOLUME 10.2 fL (7.4-10.4); MONOCYTES 11.6 % (2-11); NEUTROPHILS 59.4 % (40-80); PLATELET COUNT 213 10x3/uL (130-400); RBC 3.43 10x6/uL (4.00-5.40); RDW 14.8 % (11.5-14.5)
[2017-04-16 05:13] LABS: ALBUMIN 2.8 g/dL (3.4-5.0); ANION GAP 11.8 mmol/L (8-16); BILIRUBIN - TOTAL 0.1 mg/dL (0.2-1.3); CALCIUM 8.6 mg/dL (8.5-10.1); CREATININE - SERUM 1.1 mg/dL (0.6-1.3); POTASSIUM - SERUM 4.8 mmol/L (3.5-5.1); PROTEIN - SERUM 5.7 g/dL (6.4-8.2)
[2017-04-16 07:55] VITALS: BP 141/62
[2017-04-16 11:52] VITALS: BP 134/54
[2017-04-16 16:11] VITALS: BP 106/49
[2017-04-16 20:00] VITALS: BP 146/61
[2017-04-17 04:00] VITALS: BP 139/42
[2017-04-17 04:41] LABS: BASOPHILS 0.2 % (0-2); EOSINOPHILS 3.5 % (0-7); HEMATOCRIT 29.5 % (36.0-48.0); HEMOGLOBIN 8.9 g/dL (12-16); IMMATURE GRANULOCYTES 0.2 % (0-5); LYMPHOCYTES 24.6 % (15-50); MCH 26.3 pg (26.0-34.0); MCHC 30.2 g/dL (31.0-37.0); MCV 87.3 fL (80.0-100.0); MEAN PLATELET VOLUME 10.3 fL (7.4-10.4); NEUTROPHILS 62.5 % (40-80); PLATELET COUNT 212 10x3/uL (130-400); RBC 3.38 10x6/uL (4.00-5.40); RDW 14.9 % (11.5-14.5); WBC 5.1 10x3/uL (4.8-10.8)
[2017-04-17 05:03] LABS: ALBUMIN 2.6 g/dL (3.4-5.0); ANION GAP 12.6 mmol/L (8-16); BILIRUBIN - TOTAL 0.1 mg/dL (0.2-1.3); CALCIUM 8.5 mg/dL (8.5-10.1); CARBON DIOXIDE 25.7 mmol/L (21.0-32.0); CREATININE - SERUM 1.1 mg/dL (0.6-1.3); POTASSIUM - SERUM 4.3 mmol/L (3.5-5.1); PROTEIN - SERUM 5.4 g/dL (6.4-8.2)
[2017-04-17 08:17] VITALS: BP 161/58
[2017-04-17] MEDS ORDERED: Levaquin PO (11:45)
[2017-04-17] MEDS ORDERED: FLAGYL500 MG PO (11:45)
[2017-04-17 11:55] VITALS: BP 136/52
== END 2017-04-17 15:16 | disposition home health service (06) | DRG 394 ==
LOC: D.ER 14:36 → OBSVTIME 20:24 → D.MS 20:24
PROVIDERS: Family Medicine; Internal Medicine Gastroenterology
PROC: 0DBH8ZZ Excision of Cecum, Via Natural or Artificial Opening Endoscopic (ICD-10-PCS; 2017-04-16)
PROC: 0DBN8ZX Excision of Sigmoid Colon, Via Natural or Artificial Opening Endoscopic, Diagnostic (ICD-10-PCS; principal; 2017-04-16 13:00)
DX: K55.9 Vascular disorder of intestine, unspecified (principal); N39.0 Urinary tract infection, site not specified; D62 Acute posthemorrhagic anemia; T45.525A Adverse effect of antithrombotic drugs, initial encounter; R55 Syncope and collapse; D12.0 Benign neoplasm of cecum; K57.30 Diverticulosis of large intestine without perforation or abscess without bleeding; K64.8 Other hemorrhoids; D72.829 Elevated white blood cell count, unspecified; I50.9 Heart failure, unspecified; I25.10 Atherosclerotic heart disease of native coronary artery without angina pectoris; I48.91 Unspecified atrial fibrillation; K21.9 Gastro-esophageal reflux disease without esophagitis; F03.90 Unspecified dementia, unspecified severity, without behavioral disturbance, psychotic disturbance, mood disturbance, and anxiety; E11.65 Type 2 diabetes mellitus with hyperglycemia

== ENCOUNTER 2017-05-14 11:16 | Inpatient (IN) | payer MEDICARE ==
[~2017-05-14 11:16] MED LIST changes: +FLAGYL500 MG PO; +Levaquin PO; +NAMENDA5 MG PO; +PRINIVIL20 MG PO
[2017-05-14 12:26] LABS: APTT 24.3 SECONDS (22.8-39.4); INR 0.95 (0.85-1.17); PROTIME 12.3 SECONDS (11.6-15.0)
[2017-05-14 12:27] LABS: BASOPHILS 0.3 % (0-2); EOSINOPHILS 1.8 % (0-7); HEMATOCRIT 32.3 % (36.0-48.0); HEMOGLOBIN 9.7 g/dL (12-16); IMMATURE GRANULOCYTES 0.1 % (0-5); LYMPHOCYTES 25.1 % (15-50); MCH 25.7 pg (26.0-34.0); MCV 85.7 fL (80.0-100.0); MEAN PLATELET VOLUME 9.7 fL (7.4-10.4); NEUTROPHILS 64.7 % (40-80); RBC 3.77 10x6/uL (4.00-5.40); RDW 15.5 % (11.5-14.5); WBC 6.7 10x3/uL (4.8-10.8)
[2017-05-14 12:28] LABS: PLATELET COUNT 267 10x3/uL (130-400)
[2017-05-14 12:32] LABS: ALBUMIN 3.4 g/dL (3.4-5.0); ANION GAP 12.2 mmol/L (8-16); BILIRUBIN - TOTAL 0.2 mg/dL (0.2-1.3); CALCIUM 9.3 mg/dL (8.5-10.1); CARBON DIOXIDE 28.6 mmol/L (21.0-32.0); CREATININE - SERUM 1.5 mg/dL (0.6-1.3); POTASSIUM - SERUM 4.8 mmol/L (3.5-5.1); PROTEIN - SERUM 6.9 g/dL (6.4-8.2)
[2017-05-14 17:42] VITALS: BP 138/51; BMI 44.1
[2017-05-14 21:30] VITALS: BP 118/57
[2017-05-15 01:10] VITALS: BP 124/54
[2017-05-15 04:36] VITALS: BP 117/38
[2017-05-15 05:31] LABS: BASOPHILS 0.5 % (0-2); EOSINOPHILS 4.8 % (0-7); HEMATOCRIT 30.4 % (36.0-48.0); HEMOGLOBIN 9.2 g/dL (12-16); LYMPHOCYTES 32.2 % (15-50); MCH 25.8 pg (26.0-34.0); MCHC 30.3 g/dL (31.0-37.0); MCV 85.2 fL (80.0-100.0); MEAN PLATELET VOLUME 9.8 fL (7.4-10.4); MONOCYTES 14.7 % (2-11); NEUTROPHILS 47.8 % (40-80); PLATELET COUNT 248 10x3/uL (130-400); RBC 3.57 10x6/uL (4.00-5.40); RDW 15.5 % (11.5-14.5)
[2017-05-15 05:39] LABS: WBC 4.4 10x3/uL (4.8-10.8)
[2017-05-15 05:52] LABS: ANION GAP 11.5 mmol/L (8-16); CALCIUM 8.7 mg/dL (8.5-10.1); CARBON DIOXIDE 27.6 mmol/L (21.0-32.0); CREATININE - SERUM 1.4 mg/dL (0.6-1.3); POTASSIUM - SERUM 4.1 mmol/L (3.5-5.1)
[2017-05-15 08:45] VITALS: BP 139/64
[2017-05-15 10:44] VITALS: BMI 44.0
[2017-05-15 12:37] VITALS: BP 135/72
[2017-05-15 14:25] VITALS: BMI 44.0
[2017-05-15 16:49] VITALS: BP 123/52
[2017-05-15 22:53] VITALS: BP 133/51
[2017-05-16 01:11] VITALS: BP 136/54
[2017-05-16 04:10] LABS: BASOPHILS 0.2 % (0-2); EOSINOPHILS 4.9 % (0-7); HEMATOCRIT 29.7 % (36.0-48.0); IMMATURE GRANULOCYTES 0.2 % (0-5); LYMPHOCYTES 39.9 % (15-50); MCH 25.8 pg (26.0-34.0); MCHC 30.3 g/dL (31.0-37.0); MCV 85.1 fL (80.0-100.0); MEAN PLATELET VOLUME 9.9 fL (7.4-10.4); MONOCYTES 11.9 % (2-11); NEUTROPHILS 42.9 % (40-80); PLATELET COUNT 238 10x3/uL (130-400); RBC 3.49 10x6/uL (4.00-5.40); RDW 15.7 % (11.5-14.5); WBC 4.3 10x3/uL (4.8-10.8)
[2017-05-16 04:25] LABS: ANION GAP 11.1 mmol/L (8-16); CALCIUM 8.9 mg/dL (8.5-10.1); CARBON DIOXIDE 28.5 mmol/L (21.0-32.0); CREATININE - SERUM 1.2 mg/dL (0.6-1.3); POTASSIUM - SERUM 3.6 mmol/L (3.5-5.1)
[2017-05-16 04:51] VITALS: BP 111/41
[2017-05-16 08:50] VITALS: BP 137/77
[2017-05-16 12:35] VITALS: BP 123/42
[2017-05-16 16:22] VITALS: BP 132/48
[2017-05-16 22:13] VITALS: BP 113/46
[2017-05-17 01:16] VITALS: BP 127/61
[2017-05-17 05:14] VITALS: BP 117/45
[2017-05-17 05:14] LABS: BASOPHILS 0.2 % (0-2); EOSINOPHILS 3.7 % (0-7); HEMATOCRIT 28.9 % (36.0-48.0); HEMOGLOBIN 8.4 g/dL (12-16); LYMPHOCYTES 31.5 % (15-50); MCH 25.3 pg (26.0-34.0); MCHC 29.1 g/dL (31.0-37.0); MEAN PLATELET VOLUME 9.9 fL (7.4-10.4); MONOCYTES 12.4 % (2-11); NEUTROPHILS 52.2 % (40-80); PLATELET COUNT 238 10x3/uL (130-400); RBC 3.32 10x6/uL (4.00-5.40); RDW 15.8 % (11.5-14.5); WBC 4.8 10x3/uL (4.8-10.8)
[2017-05-17 05:24] LABS: CALCIUM 8.1 mg/dL (8.5-10.1); CARBON DIOXIDE 27.6 mmol/L (21.0-32.0); CREATININE - SERUM 1.4 mg/dL (0.6-1.3); POTASSIUM - SERUM 3.6 mmol/L (3.5-5.1)
[2017-05-17 08:12] VITALS: BP 149/60
[2017-05-17] MEDS ORDERED: CARAFATE1 G/10 ML PO (10:20)
[2017-05-17] MEDS ORDERED: PROTONIX40 MG PO (10:20)
[2017-05-17] MEDS ORDERED: PEPCID20 MG PO (10:22)
== END 2017-05-17 14:01 | disposition home or self-care (01) | DRG 378 ==
LOC: D.ER 11:16 → D.EDHOLD 15:25 → D.MS 15:25
PROVIDERS: Emergency Medicine; Internal Medicine Gastroenterology; Internal Medicine Nephrology
DX: K92.1 Melena (principal); D62 Acute posthemorrhagic anemia; K22.10 Ulcer of esophagus without bleeding; I50.9 Heart failure, unspecified; E11.65 Type 2 diabetes mellitus with hyperglycemia; K22.2 Esophageal obstruction; K29.60 Other gastritis without bleeding; K29.80 Duodenitis without bleeding

== ENCOUNTER 2017-08-16 16:58 | Inpatient (IN) | payer MEDICARE ==
[~2017-08-16] VITALS: Ht 154.9 cm; Wt 113.2 kg
--- NOTE | ~2017-08-16 | CN ---
PATIENT NAME:MEL NOVOA MEDICAL RECORD: [id number] : 40 LOCATION:D.MS [facility] ADMIT DATE: 08/16/17 ACCOUNT: [id number] CONSULTING PHYSICIAN: CARLOS A OCAMPO MD REFERRING PHYSICIAN: MARGARITA ROMAN MD DATE OF CONSULTATION: 08/17/2017 CARDIOLOGY CONSULTATION DIAGNOSES: 1. Preoperative evaluation. 2. Coronary artery disease. 3. Previous PTCA stent. 4. Diabetes. 5. Hypertension. 6. Abnormal ECG. HISTORY OF PRESENT ILLNESS: Ms. Novoa patient presents with an acute fracture. She is set for an orthopedic procedure. She does have a history of coronary artery disease. Last PTCA stent was . She has been off Plavix. She has had no chest pain. No chest discomfort. Her EKG is abnormal with a left bundle branch block, but looking back on our previous EKGs this is unchanged. She has no ST-T changes. PHYSICAL EXAMINATION: GENERAL APPEARANCE: Well-nourished, well-developed, appears stated age. Level of distress, comfortable. PSYCHIATRIC: Mental status, alert, normal affect. Orientation, oriented to time, place and person. EYES: Lids and conjunctiva, noninjected. No discharge, no pallor. ENT: Lips, teeth, gums, normal dentition. Oropharynx, no cyanosis, no pallor. NECK: Carotid arteries, bilateral normal upstroke, no bruits, no thrills. JUGULAR VEINS: No jugular venous pressure or distention. CERVICAL LYMPH NODES: Nontender, nonenlarged. THYROID: Not enlarged. Nontender. No nodules. LUNGS: Respiratory effort, unlabored. CHEST: Normal curvature. No thoracic deformity. No chest wall tenderness. Percussion, resonant. Auscultation, clear. No wheezes, no rales, no rhonchi. CARDIOVASCULAR: Precordial exam, nondisplaced. No heaves or pericardial thrills. Rate and rhythm, regular. Heart sounds, normal S1, normal S2. No S3, no gallop, no rub. Systolic murmur, not heard. Diastolic murmur, not heard. EXTREMITIES: No cyanosis, no edema. Peripheral pulses, full and equal in all extremities, except as noted. No bruits appreciated. ABDOMEN: Soft, nondistended. Normal aorta. No bruit. Nontender. No masses. Liver, nontender, no hepatomegaly. Spleen, nontender, no splenomegaly. MUSCULOSKELETAL: No joint tenderness. No joint swelling. No erythema. NEUROLOGICAL: Normal gait, normal strength, normal tone. SKIN: Warm and dry. OVERALL IMPRESSION: Stable coronary artery disease. No ongoing ischemia. EKG is with no changes. Proceed with operative repair at low cardiac risk. No other cardiac workup or treatment preoperatively. TRANSINT:[id number] Voice Confirmation ID: [id number] DOCUMENT ID: [id number] CONSULT REPORT [id number] MEL NOVOA, CARLOS A COSME at 1403 CC: [id number] DICTATION DATE: 08/17/17920 DOCK WORKER: 08/17/17 1413 ADM IN [id number] [place] [address]
--- NOTE | ~2017-08-16 | OP ---
PATIENT NAME: MEL NOVOA MEDICAL RECORD: [id number] :40 LOCATION:D.MS [place] ADMISSION DATE:08/16/17 SURGEON: LUCÍA PANDA MD DATE OF OPERATION: 08/19/2017 PREOPERATIVE DIAGNOSIS: Left periprosthetic distal femur fracture. POSTOPERATIVE DIAGNOSIS: Left periprosthetic distal femur fracture. PROCEDURE: Open reduction internal fixation of left distal periprosthetic femur fracture. SURGEON: Lucía Panda MD ANESTHESIA: General. INTRAOPERATIVE COMPLICATIONS: None. SUMMARY OF PATHOLOGIC FINDINGS: Consistent with the preoperative radiographs and CT scan, the patient had a spiral fracture about the stem of her revision total knee arthroplasty. ESTIMATED BLOOD LOSS: 200 cc OPERATIVE SUMMARY IN DETAIL: After obtaining the appropriate preoperative orthopedic surgical consent as well as anesthetic consultation, evaluation, and clearance, the patient was brought to the operating room and placed on the operating table in supine position. After general laryngeal mask airway was administered, the patient was placed in a right lateral decubitus position. All pressure points were well padded to include down-leg peroneal pad as well as axillary roll. The patient was held firmly to the operating table using the vacuum pack suction system. Right lower extremity and hip were then prepped and draped in routine sterile fashion. Incision was made from the distal tip of the lateral femoral condyle to approximately midway up the femur. Dissection was then carried down to the IT band. Careful dissection was carried down to the vastus lateralis, care to coagulate and continue hemostasis with all the perforators. Distal femur and fracture was exposed. Fracture reduction maneuver was performed and clamped provisionally. Fluoroscopy was brought in and radiograph showed anatomic reduction. At this point, 3 Dall-Miles cables were placed around the femur for provisional fixation. This was then checked under fluoroscopy. This showed the provisional fixation was in good shape. At this point, access VariAx 8-hole plate was then put in, distal femoral periarticular plate was then put in and a combination of serial and sequential drilling and filling was done for stabilization. Distally, the patient had to have periprosthetic locking screws, unicortical, proximal to the fracture; however, 4 bicortical locking screws had excellent purchase and across the fracture site unicortical screws were also used to provide fixation. Final radiographs were taken and submitted for radiologist review. The wound was copiously irrigated. The vastus lateralis was closed with #2 Ethibond. This was followed by closure of the IT band with #2 Ethibond followed by #1 Vicryl, 2-0 Vicryl and skin alexander. Sterile dressings were applied. The patient was awakened and taken to the recovery room in stable condition. All final needle and sponge counts were correct. TRANSINT:[id number] Voice Confirmation ID: [id number] DOCUMENT ID: [id number] OPERATIVE REPORT [id number] MEL NOVOA MD, LUCÍA PATTON at 1259 CC: [id number] DICTATION DATE: 08/19/17 183 MAGNETIC PROSPECTING SUPERVISOR: 08/19/171956 ADM IN [facility] [address] [id number]
[~2017-08-16 16:58] MED LIST changes: +CARAFATE1 G/10 ML PO; +PEPCID20 MG PO; +PROTONIX40 MG PO
[2017-08-16 19:42] LABS: BASOPHILS 0.2 % (0-2); EOSINOPHILS 0.7 % (0-7); HEMATOCRIT 32.6 % (36.0-48.0); HEMOGLOBIN 9.7 g/dL (12-16); IMMATURE GRANULOCYTES 0.4 % (0-5); LYMPHOCYTES 17.4 % (15-50); MCH 25.1 pg (26.0-34.0); MCHC 29.8 g/dL (31.0-37.0); MCV 84.2 fL (80.0-100.0); MONOCYTES 7.6 % (2-11); NEUTROPHILS 73.7 % (40-80); PLATELET COUNT 233 10x3/uL (130-400); RBC 3.87 10x6/uL (4.00-5.40); WBC 8.1 10x3/uL (4.8-10.8)
[2017-08-16 19:51] LABS: INR 0.95 (0.85-1.17); PROTIME 12.3 SECONDS (11.6-15.0)
[2017-08-16 20:07] LABS: ALBUMIN 3.4 g/dL (3.4-5.0); ANION GAP 12.9 mmol/L (8-16); BILIRUBIN - TOTAL 0.14 mg/dL (0.2-1.3); CALCIUM 8.8 mg/dL (8.5-10.1); CARBON DIOXIDE 30.2 mmol/L (21.0-32.0); CREATININE - SERUM 1.4 mg/dL (0.6-1.3); MAGNESIUM - SERUM 2.1 mg/dL (1.8-2.4); POTASSIUM - SERUM 4.1 mmol/L (3.5-5.1); PROTEIN - SERUM 6.5 g/dL (6.4-8.2)
[2017-08-16] MEDS ORDERED: BUMEX 1 MG TAB1 MG PO (23:20)
[2017-08-17 01:07] VITALS: BP 140/64; BMI 47.3
[2017-08-17 03:52] VITALS: BP 130/70
[2017-08-17 05:01] LABS: BASOPHILS 0.3 % (0-2); EOSINOPHILS 1.7 % (0-7); HEMATOCRIT 30.1 % (36.0-48.0); HEMOGLOBIN 8.9 g/dL (12-16); IMMATURE GRANULOCYTES 0.2 % (0-5); LYMPHOCYTES 26.5 % (15-50); MCH 24.9 pg (26.0-34.0); MCHC 29.6 g/dL (31.0-37.0); MCV 84.3 fL (80.0-100.0); MEAN PLATELET VOLUME 9.9 fL (7.4-10.4); MONOCYTES 8.9 % (2-11); NEUTROPHILS 62.4 % (40-80); PLATELET COUNT 224 10x3/uL (130-400); RBC 3.57 10x6/uL (4.00-5.40); RDW 15.1 % (11.5-14.5)
[2017-08-17 05:10] LABS: INR 1.03 (0.85-1.17); PROTIME 13.1 SECONDS (11.6-15.0)
[2017-08-17 05:36] LABS: ANION GAP 10.2 mmol/L (8-16); CALCIUM 8.8 mg/dL (8.5-10.1); CARBON DIOXIDE 32.1 mmol/L (21.0-32.0); CREATININE - SERUM 1.3 mg/dL (0.6-1.3); POTASSIUM - SERUM 4.3 mmol/L (3.5-5.1)
[2017-08-17 08:10] VITALS: BP 136/53
[2017-08-17 13:06] VITALS: BP 153/50
[2017-08-17 13:11] VITALS: Ht 154.9 cm; Wt 113.2 kg
[2017-08-17 16:04] VITALS: BP 135/47
[2017-08-17 19:58] VITALS: BP 134/46
[2017-08-18 00:04] VITALS: BP 129/55
[2017-08-18 04:00] VITALS: BP 143/61
[2017-08-18 04:59] LABS: BASOPHILS 0.1 % (0-2); HEMATOCRIT 32.4 % (36.0-48.0); HEMOGLOBIN 9.4 g/dL (12-16); IMMATURE GRANULOCYTES 0.4 % (0-5); LYMPHOCYTES 19.6 % (15-50); MCH 24.8 pg (26.0-34.0); MCV 85.5 fL (80.0-100.0); MEAN PLATELET VOLUME 9.8 fL (7.4-10.4); MONOCYTES 13.8 % (2-11); NEUTROPHILS 64.1 % (40-80); PLATELET COUNT 237 10x3/uL (130-400); RBC 3.79 10x6/uL (4.00-5.40); WBC 7.3 10x3/uL (4.8-10.8)
[2017-08-18 05:19] LABS: ANION GAP 8.5 mmol/L (8-16); BILIRUBIN - TOTAL 0.51 mg/dL (0.2-1.3); CALCIUM 9.1 mg/dL (8.5-10.1); CARBON DIOXIDE 34.2 mmol/L (21.0-32.0); CREATININE - SERUM 1.3 mg/dL (0.6-1.3); POTASSIUM - SERUM 4.7 mmol/L (3.5-5.1); PROTEIN - SERUM 6.5 g/dL (6.4-8.2)
[2017-08-18 08:20] VITALS: BP 149/72
[2017-08-18 12:48] VITALS: BP 152/61
[2017-08-18 16:55] VITALS: BP 149/54
[2017-08-18 20:00] VITALS: BP 124/58
[2017-08-19] VITALS (11 sets, daily range): BP systolic 97–161; BP diastolic 54–102
[2017-08-19 05:00] LABS: BASOPHILS 0.2 % (0-2); EOSINOPHILS 0.7 % (0-7); HEMATOCRIT 29.5 % (36.0-48.0); HEMOGLOBIN 8.7 g/dL (12-16); IMMATURE GRANULOCYTES 0.2 % (0-5); LYMPHOCYTES 17.3 % (15-50); MCH 25.1 pg (26.0-34.0); MCHC 29.5 g/dL (31.0-37.0); MCV 85.3 fL (80.0-100.0); MEAN PLATELET VOLUME 9.7 fL (7.4-10.4); MONOCYTES 13.2 % (2-11); NEUTROPHILS 68.4 % (40-80); PLATELET COUNT 220 10x3/uL (130-400); RBC 3.46 10x6/uL (4.00-5.40); RDW 15.3 % (11.5-14.5); WBC 8.2 10x3/uL (4.8-10.8)
[2017-08-19 05:07] LABS: ALBUMIN 2.7 g/dL (3.4-5.0); ANION GAP 9.7 mmol/L (8-16); BILIRUBIN - TOTAL 0.37 mg/dL (0.2-1.3); CALCIUM 8.6 mg/dL (8.5-10.1); CARBON DIOXIDE 31.5 mmol/L (21.0-32.0); CREATININE - SERUM 1.3 mg/dL (0.6-1.3); POTASSIUM - SERUM 4.2 mmol/L (3.5-5.1); PROTEIN - SERUM 6.2 g/dL (6.4-8.2)
[2017-08-19 15:59] LABS: APPEARANCE CLEAR (CLEAR); BILIRUBIN NEGATIVE (NEGATIVE); COLOR YELLOW (YELLOW); GLUCOSE NEGATIVE (NEGATIVE); KETONE NEGATIVE (NEGATIVE); NITRITE NEGATIVE (NEGATIVE); PROTEIN TRACE mg/dL (NEGATIVE); SPECIFIC GRAVITY 1.015 (1.005-1.020); UROBILINOGEN NORMAL (NORMAL)
[2017-08-19 16:00] LABS: BACTERIA MODERATE /hpf (NONE SEEN); EPITHELIAL CELLS 0-5 /hpf (0-5); RED CELLS - URINE 0-5 /hpf (0-5)
[2017-08-20] VITALS (10 sets, daily range): BP systolic 91–147; BP diastolic 45–87
[2017-08-20 05:07] LABS: BASOPHILS 0.2 % (0-2); EOSINOPHILS 0.2 % (0-7); HEMATOCRIT 28.7 % (36.0-48.0); HEMOGLOBIN 8.4 g/dL (12-16); IMMATURE GRANULOCYTES 0.5 % (0-5); LYMPHOCYTES 11.1 % (15-50); MCH 25.1 pg (26.0-34.0); MCHC 29.3 g/dL (31.0-37.0); MCV 85.7 fL (80.0-100.0); MEAN PLATELET VOLUME 9.9 fL (7.4-10.4); PLATELET COUNT 206 10x3/uL (130-400); RBC 3.35 10x6/uL (4.00-5.40); RDW 15.3 % (11.5-14.5); WBC 9.5 10x3/uL (4.8-10.8)
[2017-08-20 05:18] LABS: ALBUMIN 2.6 g/dL (3.4-5.0); ANION GAP 12.1 mmol/L (8-16); BILIRUBIN - TOTAL 0.3 mg/dL (0.2-1.3); CALCIUM 8.3 mg/dL (8.5-10.1); CARBON DIOXIDE 27.4 mmol/L (21.0-32.0); CREATININE - SERUM 1.4 mg/dL (0.6-1.3); POTASSIUM - SERUM 4.5 mmol/L (3.5-5.1); PROTEIN - SERUM 6.2 g/dL (6.4-8.2)
[2017-08-21] VITALS (8 sets, daily range): BP systolic 110–134; BP diastolic 45–94
[2017-08-21 05:10] LABS: BASOPHILS 0.1 % (0-2); HEMATOCRIT 25.1 % (36.0-48.0); IMMATURE GRANULOCYTES 0.1 % (0-5); LYMPHOCYTES 20.2 % (15-50); MCH 24.7 pg (26.0-34.0); MCHC 29.1 g/dL (31.0-37.0); MCV 84.8 fL (80.0-100.0); MEAN PLATELET VOLUME 9.7 fL (7.4-10.4); MONOCYTES 14.8 % (2-11); NEUTROPHILS 62.8 % (40-80); PLATELET COUNT 201 10x3/uL (130-400); RBC 2.96 10x6/uL (4.00-5.40); RDW 15.6 % (11.5-14.5)
[2017-08-21 05:31] LABS: HEMOGLOBIN 7.3 g/dL (12-16)
[2017-08-21 05:33] LABS: ALBUMIN 2.2 g/dL (3.4-5.0); BILIRUBIN - TOTAL 0.24 mg/dL (0.2-1.3); CALCIUM 8.2 mg/dL (8.5-10.1); CARBON DIOXIDE 29.6 mmol/L (21.0-32.0); CREATININE - SERUM 1.4 mg/dL (0.6-1.3); PROTEIN - SERUM 5.9 g/dL (6.4-8.2)
[2017-08-21 05:34] LABS: POTASSIUM - SERUM 3.6 mmol/L (3.5-5.1)
[2017-08-22 03:58] VITALS: BP 104/53
[2017-08-22 05:41] LABS: BASOPHILS 0.1 % (0-2); EOSINOPHILS 3.1 % (0-7); IMMATURE GRANULOCYTES 0.3 % (0-5); MCH 25.8 pg (26.0-34.0); MCHC 30.9 g/dL (31.0-37.0); MCV 83.4 fL (80.0-100.0); MEAN PLATELET VOLUME 9.7 fL (7.4-10.4); MONOCYTES 14.3 % (2-11); NEUTROPHILS 67.2 % (40-80); PLATELET COUNT 180 10x3/uL (130-400); RDW 16.5 % (11.5-14.5); WBC 7.5 10x3/uL (4.8-10.8)
[2017-08-22 05:43] LABS: HEMATOCRIT 31.7 % (36.0-48.0); HEMOGLOBIN 9.8 g/dL (12-16)
[2017-08-22 06:08] LABS: ALBUMIN 2.1 g/dL (3.4-5.0); ANION GAP 10.9 mmol/L (8-16); BILIRUBIN - TOTAL 0.46 mg/dL (0.2-1.3); CALCIUM 8.7 mg/dL (8.5-10.1); CARBON DIOXIDE 30.1 mmol/L (21.0-32.0); CREATININE - SERUM 1.4 mg/dL (0.6-1.3); PROTEIN - SERUM 6.2 g/dL (6.4-8.2)
[2017-08-22 09:07] VITALS: BP 104/53
[2017-08-22 12:33] VITALS: BP 137/67
[2017-08-22 15:40] VITALS: BP 126/74
[2017-08-22 19:58] VITALS: BP 108/42
[2017-08-23] VITALS (7 sets, daily range): BP systolic 118–146; BP diastolic 45–66
[2017-08-24 04:20] VITALS: BP 126/48
[2017-08-24 08:16] VITALS: BP 119/65
[2017-08-24 16:55] VITALS: BP 135/57
[2017-08-24 20:49] VITALS: BP 159/64
[2017-08-25 00:52] VITALS: BP 124/46
[2017-08-25 04:17] VITALS: BP 133/52
[2017-08-25 06:56] LABS: BASOPHILS 0.3 % (0-2); EOSINOPHILS 5.9 % (0-7); HEMATOCRIT 28.6 % (36.0-48.0); HEMOGLOBIN 8.6 g/dL (12-16); IMMATURE GRANULOCYTES 0.3 % (0-5); LYMPHOCYTES 20.4 % (15-50); MCH 25.6 pg (26.0-34.0); MCHC 30.1 g/dL (31.0-37.0); MCV 85.1 fL (80.0-100.0); MEAN PLATELET VOLUME 9.7 fL (7.4-10.4); NEUTROPHILS 61.1 % (40-80); RBC 3.36 10x6/uL (4.00-5.40); RDW 16.3 % (11.5-14.5); WBC 6.2 10x3/uL (4.8-10.8)
[2017-08-25 07:00] LABS: PLATELET COUNT 246 10x3/uL (130-400)
[2017-08-25 07:16] LABS: ANION GAP 9.5 mmol/L (8-16); CALCIUM 8.7 mg/dL (8.5-10.1); CARBON DIOXIDE 32.2 mmol/L (21.0-32.0); CREATININE - SERUM 1.2 mg/dL (0.6-1.3); POTASSIUM - SERUM 4.7 mmol/L (3.5-5.1)
[2017-08-25 09:09] VITALS: BP 144/59
[2017-08-25 12:15] LABS: APPEARANCE CLEAR (CLEAR); BILIRUBIN NEGATIVE (NEGATIVE); COLOR YELLOW (YELLOW); GLUCOSE NEGATIVE (NEGATIVE); KETONE NEGATIVE (NEGATIVE); NITRITE NEGATIVE (NEGATIVE); PROTEIN TRACE mg/dL (NEGATIVE)
[2017-08-25 12:16] LABS: BACTERIA FEW /hpf (NONE SEEN); EPITHELIAL CELLS 0-5 /hpf (0-5); RED CELLS - URINE 0-5 /hpf (0-5); WHITE CELLS - URINE 0-5 /hpf (0-5)
[2017-08-25 12:31] VITALS: BP 114/57
[2017-08-25 20:09] VITALS: BP 145/74
[2017-08-26] VITALS: BP 143/53
[2017-08-26 04:00] VITALS: BP 149/62
[2017-08-26 05:26] LABS: BASOPHILS 0.2 % (0-2); EOSINOPHILS 5.6 % (0-7); HEMATOCRIT 29.3 % (36.0-48.0); HEMOGLOBIN 8.7 g/dL (12-16); IMMATURE GRANULOCYTES 0.7 % (0-5); MCH 25.1 pg (26.0-34.0); MCHC 29.7 g/dL (31.0-37.0); MCV 84.7 fL (80.0-100.0); MONOCYTES 9.8 % (2-11); NEUTROPHILS 55.7 % (40-80); PLATELET COUNT 205 10x3/uL (130-400); RBC 3.46 10x6/uL (4.00-5.40); RDW 16.2 % (11.5-14.5); WBC 5.7 10x3/uL (4.8-10.8)
[2017-08-26 05:49] LABS: ANION GAP 9.8 mmol/L (8-16); CALCIUM 8.9 mg/dL (8.5-10.1); CARBON DIOXIDE 31.1 mmol/L (21.0-32.0); CREATININE - SERUM 1.2 mg/dL (0.6-1.3)
[2017-08-26 05:50] LABS: POTASSIUM - SERUM 3.9 mmol/L (3.5-5.1)
[2017-08-26] MEDS ORDERED: ELIQUIS2.5 MG PO (08:10)
[2017-08-26] MEDS ORDERED: PERCOCET 10/3251 TA1 PO (08:10)
[2017-08-26 08:50] VITALS: BP 157/61
[2017-08-26 11:40] VITALS: BP 142/58
[2017-08-26 21:10] VITALS: BP 147/52
[2017-08-27 00:59] VITALS: BP 161/62
[2017-08-27 04:17] VITALS: BP 154/68
[2017-08-27 05:39] LABS: BASOPHILS 0.3 % (0-2); EOSINOPHILS 5.2 % (0-7); HEMATOCRIT 27.2 % (36.0-48.0); IMMATURE GRANULOCYTES 0.2 % (0-5); LYMPHOCYTES 22.5 % (15-50); MCH 25.6 pg (26.0-34.0); MCHC 29.4 g/dL (31.0-37.0); MEAN PLATELET VOLUME 9.6 fL (7.4-10.4); MONOCYTES 11.1 % (2-11); NEUTROPHILS 60.7 % (40-80); PLATELET COUNT 229 10x3/uL (130-400); RBC 3.12 10x6/uL (4.00-5.40); RDW 16.8 % (11.5-14.5); WBC 5.7 10x3/uL (4.8-10.8)
[2017-08-27 05:46] LABS: MCV 87.2 fL (80.0-100.0)
[2017-08-27 05:47] LABS: CALCIUM 8.7 mg/dL (8.5-10.1); CARBON DIOXIDE 30.3 mmol/L (21.0-32.0); CREATININE - SERUM 1.3 mg/dL (0.6-1.3); POTASSIUM - SERUM 4.3 mmol/L (3.5-5.1)
[2017-08-27 08:58] VITALS: BP 162/61
[2017-08-27 11:33] VITALS: BP 155/56
== END 2017-08-27 14:22 | DRG 481 ==
LOC: D.ER 16:58 → D.MS 21:41
PROVIDERS: Emergency Medicine; Family Medicine; Internal Medicine Nephrology; Orthopaedic Surgery
PROC: 0QS904Z Reposition Left Femoral Shaft with Internal Fixation Device, Open Approach (ICD-10-PCS; principal; 2017-08-19 13:45)
DX: M97.12XA Periprosthetic fracture around internal prosthetic left knee joint, initial encounter (principal); S72.492A Other fracture of lower end of left femur, initial encounter for closed fracture; I50.32 Chronic diastolic (congestive) heart failure; N17.9 Acute kidney failure, unspecified; N39.0 Urinary tract infection, site not specified; D62 Acute posthemorrhagic anemia; Z68.42 Body mass index [BMI] 45.0-49.9, adult; W18.39XA Other fall on same level, initial encounter; I25.10 Atherosclerotic heart disease of native coronary artery without angina pectoris; E11.65 Type 2 diabetes mellitus with hyperglycemia; Z79.4 Long term (current) use of insulin; I11.0 Hypertensive heart disease with heart failure; I48.91 Unspecified atrial fibrillation; K21.9 Gastro-esophageal reflux disease without esophagitis; F03.90 Unspecified dementia, unspecified severity, without behavioral disturbance, psychotic disturbance, mood disturbance, and anxiety; E66.01 Morbid (severe) obesity due to excess calories; K59.00 Constipation, unspecified

== ENCOUNTER → 2018-01-10 08:42 | Outpatient (CLI) | payer MEDICARE ==
[~2018-01-10] VITALS: Ht 154.9 cm; Wt 101.8 kg
--- NOTE | ~2018-01-10 | OP ---
PATIENT NAME: MEL NOVOA MEDICAL RECORD: [id number] :40 LOCATION:D.CAT ADMISSION DATE: SURGEON: CARLOS A OCAMPO MD DATE OF OPERATION: 01/10/2018 PROCEDURES: 1. PTCA stent RCA. 2. Left heart catheterization. 3. Selective coronary angiography. 4. Left ventriculogram. INDICATION: Angina and coronary artery disease. PROCEDURE IN DETAIL: After informed consent was obtained and after a detailed description of risks, benefits as well as alternative therapies, the patient elected to proceed with angiogram and angioplasty. The right femoral area was prepped and draped in normal sterile fashion. The right femoral artery was cannulated via modified Seldinger technique with placement of 6-Mexican sheath. All catheters exchanged through this sheath. FINDINGS: The left ventriculogram was performed in standard 30-degree BAH view, reveals good cardiac wall motion throughout all segments. Overall ejection fraction estimated 60%. SELECTIVE CORONARY ANGIOGRAPHY: 1. Left main is with no significant angiographic disease. 2. Left anterior descending has moderate irregularities, but no flow-limiting stenosis. 3. The left circumflex has moderate irregularities, but no flow-limiting stenosis. 4. The right coronary artery has previously placed stents. There is up to 70% to 80% in-stent restenosis throughout the mid vessel. PTCA STENT OF THE RCA: The stent used is a 3.0 x 38 mm Piyush. Result was 0% residual stenosis. OVERALL IMPRESSION: Successful percutaneous transluminal coronary angioplasty stent of the right coronary artery going from 70% to 80% in-stent restenosis to 0% residual. TRANSINT:[id number] Voice Confirmation ID: [id number] DOCUMENT ID: [id number] CARLOS A OCAMPO MD at 1914 CC: [id number] DICTATION DATE: 01/10/18 1416 SOFTWARE DEVELOPMENT ENGINEER: 01/10/18 1447 [facility] [address] [place] [address]
--- NOTE | ~2018-01-10 | HEMODYNAMI ---
PATIENT:MEL NOVOA MEDICAL RECORD: [id number] : 40 LOCATION:D.CAT ADMISSION DATE: 01/10/18 Generatedon:01/10/201814:08 Patient name: MEL NOVOA Patient #: [id number] SSN: D OB: 1940 Date of study: 01/10/2018 Page: Of Hemodynamic Procedure Report Patient Data Patient Demographics Procedure consent was obtained First Name: MEL Gender: Female Last Name: BRIGHT : 1940 Middle Initial: R Age: 77 year(s) Patient #: [id number] Race: Unknown Additional ID: [id number] Contact details [address]: [address] [place] [address] State: [place] City: [place] Zip code: [address] Admission Admission Data Admission Date: 01/10/2018 Admission Time: 8:42 Procedure Procedure Types Cath Procedure Diagnostic Procedure LHC LHC w/Coronaries Sedation Charges Moderate Sedation up to 15 minutes PCI Procedure Coronary Stent Coronary Stent Initial Procedure Description Procedure Date Procedure Date: 01/10/2018 Procedure Start Time: 13:49 Procedure End Time: 14:02 Procedure Staff Name Function Byron Kiser MD Performing Physician Emilee Griffin RT Monitor Regine Begr RT Scrub Jaycee Diamond RN Nurse Procedure Data Cath Procedure Fluoroscopy Diagnostic fluoroscopy Total fluoroscopy Time: 3.1 time: 3.1 min min Diagnostic fluoroscopy Total fluoroscopy dose: 796 dose: 796 mGy mGy Contrast Material Contrast Material Type Amount (ml) Isovue 300 68 Entry Location Entry Primary Successful Side Size Upsize Upsize Entry Closure Succes sful Closure Location (Fr) 1 (Fr) 2 (Fr) Remarks Device Remarks Femoral Right 5 Fr 6 Fr Exoseal artery Short Estimated blood loss: 5 ml Diagnostic catheters Device Type Used For End Catheter Placement MULTIPACK Pigtail 5 Fr Multi-vessel catheter Angiography MULTIPACK JL 4.0 5Fr Left Coronary catheter Angiography MULTIPACK 3DRC 5Fr Right Coronary catheter Angiography Procedure Complications No complications Procedure Medications Medication Administration Route Dosage Oxygen etCO2 Nasal cannula 2 l/min Lidocaine 2% added to field 20 Heparin Flush Bag added to field 2 bags (1000units/500ml NS) 0.9% NaCl I.V. 100 ml/hr Zofran I.V. 4 mg Versed I.V. 1 mg Fentanyl I.V. 50 mcg Versed I.V. 1 mg Fentanyl I.V. 50 mcg Versed I.V. 1 mg Fentanyl I.V. 50 mcg Heparin Bolus I.V. 4000 units Integrilin (Bolus I.V. 9 ml 2mg/ml) Plavix P.O. 600 mg Hemodynamics Rest Heart Rate: 65 (bpm) Pressure Samples Time Site Value (mmHg) Purpose Heart Use Rate(bpm) 13:50 LV 73/-36,-7 Snapshot 82 Snapshots Pre Cath Intra NCS Post Cath Vital Signs Time Heart Resp SPO2 etCO2 NIBP (mmHg) Rhythm Pain Sedation Rate (ipm) (%) (mmHg) Status Level (bpm) 13:21:01 61 20 100 13.4 170/73(121) NSR 0 (11) 10(A) , No pain 13:26:24 60 15 100 14.9 163/68(127) NSR 0 (11) 10(A) , No pain 13:30:42 62 17 96 1.4 125/56(96) NSR 0 (11) 10(A) , No pain 13:35:01 60 13 95 11.2 126/61(105) NSR 0 (11) 10(A) , No pain 13:39:15 59 12 98 0 127/66(95) NSR 0 (11) 10(A) , No pain 13:43:33 59 12 98 0 137/70(99) NSR 0 (11) 10(A) , No pain 13:47:53 58 13 98 0 138/74(104) NSR 0 (11) 9(A) , No pain 13:52:11 57 13 98 13.4 118/64(91) NSR 0 (11) 9(A) , No pain 13:56:27 68 14 95 15.6 128/64(96) NSR 0 (11) 9(A) , No pain 14:00:41 71 14 96 26.8 122/67(99) NSR 0 (11) 9(A) , No pain 14:07:39 67 12 93 23.1 131/61(94) NSR 0 (11) 10(A) , No pain Medications Time Medication Route Dose Verified Delivered Reason Notes Effectiveness by by 13:20:22 Oxygen etCO2 2 Byronsofya Briceie used for Nasal l/min Rashel Diamond RN procedure cannula 13:20:29 Lidocaine 2% added 20ml Byronsofya [place] for local to vial Rashel Kiser MD anesthetic field 13:20:39 Heparin Flush added 2 Byron Byron used for Bag to bags Rashel Kiser MD procedure (1000units/500ml field NS) 13:20:48 0.9% NaCl I.V. 100 Byron Buffie Per physician ml/hr Rashel Diamond RN 13:20:58 Zofran I.V. 4 mg Byron Champion Per physician Rashel Diamond RN 13:32:35 Versed I.V. 1 mg Byron Briceie for sedation Rashel Diamond RN 13:32:41 Fentanyl I.V. 50 Byronsofya Briceie for sedation mcg Rashel Diamond RN 13:35:07 Versed I.V. 1 mg Byron Briceie for sedation Rashel Diamond RN 13:35:10 Fentanyl I.V. 50 Byron Buffie for sedation mcg Rashel Diamond RN 13:49:29 Versed I.V. 1 mg Byron Briceie for sedation Rashel Diamond RN 13:49:32 Fentanyl I.V. 50 Byron Buffie for sedation mcg Rashel Diamond RN 13:56:12 Heparin Bolus I.V. 4000 Byron Buffie for verif ied units Rashel Diamond RN anticoagulation with dr kiser 13:58:42 Integrilin I.V. 9 ml Byron Champion for waste d 1 (Bolus 2mg/ml) Rashel Diamond RN antiplatelet ml of therapy vial 14:05:58 Plavix P.O. 600 Byron Champion for mg Rashel Diamond RN antiplatelet therapy Procedure Log Time Note 13:00:59 Regine SLADE(R) sent for patient. Start room use. 13:18:05 Time tracking: Regular hours (M-F 7:00 - 5:00) 13:18:09 Plan of Care:Hemodynamics will remain stable., Cardiac rhythm will remain stable., Comfort level will be maintained., Respiratory function will remain adequate., Patient/ family verbilizes understanding of procedure., Procedure tolerated without complication., Recovers from procedure without complications.. 13:18:40 Patient received from Pre/Post Procedure Room to CCL 2 Alert and oriented. Tansferred to table in Supine position. 13:18:41 Warm blankets applied, and héctor hugger turned on for patient comfort. 13:18:41 Correct patient and procedure confirmed by team. 13:18:42 Signed procedure consent form obtained from patient. 13:18:43 ECG and BP/O2 sat monitors applied to patient. 13:18:48 Vital chart was started 13:18:56 Rhythm: sinus rhythm 13:18:57 Full Disclosure recording started 13:19:03 H&P Date Dictated: 01/10/2018 Within 30 days and on chart., H&P Addendum completed by physician on day of procedure. (MUST COMPLETE FOR ALL OUTPATIENTS). 13:19:04 Pre-procedure instructions explained to patient. 13:19:04 Pre-op teaching completed and patient verbalized understanding. 13:19:06 Family in waiting room. 13:19:07 Patient NPO since Midnight. 13:19:09 Is the patient allergic to Iodine/contrast media? No. 13:19:51 Was the patient premedicated? No 13:19:56 Is patient on blood thinner?No 13:20:22 Oxygen 2 l/min etCO2 Nasal cannula was administered by Jaycee Diamond RN; used for procedure; 13:20:29 Lidocaine 2% 20ml vial added to field was administered by Byron Kiser MD; for local anesthetic; 13:20:39 Heparin Flush Bag (1000units/500ml NS) 2 bags added to field was administered by Byron Kiser MD; used for procedure; 13:20:48 0.9% NaCl 100 ml/hr I.V. was administered by Jaycee Diamond RN; Per physician; 13:20:58 Zofran 4 mg I.V. was administered by Jaycee Diamond RN; Per physician; 13:24:07 Patient diabetic? Yes. 13:24:13 Previous problem with sedation/anesthesia? No ? 13:24:15 Snore? Yes 13:24:16 Sleep apnea? No 13:24:16 Deviated septum? No 13:24:17 Opens mouth fully? Yes 13:24:18 Sticks out tongue? Yes 13:24:19 Airway obstruction? No ? 13:24:22 Dentures? No ? 13:27:12 Pre procedure: right dorsailis pedis pulse 2+ Normal; easily identifiable; not easily obliterated 13:27:14 Pre procedure: left dorsailis pedis pulse 2+ Normal; easily identifiable; not easily obliterated 13:27:16 Patient pain scale 0/10 ?. 13:27:21 IV patent on arrival in left forearm with 0.9% NaCl at [facility]. 13:27:24 Lab results completed and on chart. 13:27:27 Right groin area was prepped with chlora-prep and draped in sterile fashion 13:27:28 Alarms reviewed by R. N. 13:27:29 Sharps counted by scrub and verified by R.N. 13::34 Physician arrived 13::35 --------ALL STOP TIME OUT------ 13::35 Final Timeout: patient, procedure, and site verified with staff and physician. All members of the team are in agreement. 13:27:37 Right groin site verified by team. 13:27:39 Physical assessment completed. ASA score P 2 - A patient with mild systemic disease as per Byron Kiser MD. 13:27:42 Sedation plan: IV Moderate Sedation Medication:Versed, Fentanyl 13:29:24 Use device set Femoral Dx 13:29:27 ACIST Syringe (74369) opened to sterile field. 13:29:27 Bag Decanter () opened to sterile field. 13:29:27 Medline Cath Pack ([id number]) opened to sterile field. 13:29:28 DIAGNOSTIC WIRE .035 260cm J wire (647390) opened to sterile field. 13:29:29 ACIST Hand Control (72630) opened to sterile field. 13:29:29 ACIST Manifold (15420) opened to sterile field. 13:29:30 DIAGNOSTIC Multipack 5Fr catheter set ([id number]) opened to sterile field. 13:29:30 Tegaderm 4 x 4 (1626W) opened to sterile field. 13:29:31 SHEATH Prelude 5Fr 0.035 (MHX-2R-80-035) opened to sterile field. 13:32:35 Versed 1 mg I.V. was administered by Buffie Diamond RN; for sedation; 13:32:41 Fentanyl 50 mcg I.V. was administered by Jaycee Diamond RN; for sedation; 13:33:09 Baseline sample Acquired. 13:35:07 Versed 1 mg I.V. was administered by Jaycee Diamond RN; for sedation; 13:35:10 Fentanyl 50 mcg I.V. was administered by Jaycee Diamond RN; for sedation; 13:47:22 Procedure started. 13:49:02 Local anesthetic to right femoral artery with Lidocaine 2% by Byron Kiser MD.INITIAL ACCESS ONLY 13:49:15 A 5 Fr sheath was inserted into the Right Femoral artery 13:49:29 Versed 1 mg I.V. was administered by Jaycee Diamond RN; for sedation; 13:49:32 Fentanyl 50 mcg I.V. was administered by Jaycee Diamond RN; for sedation; 13:49:45 A MULTIPACK Pigtail 5 Fr catheter was advanced over the wire and used for Multi-vessel Angiography. 13:50:45 LV hemodynamics recorded. 13:50:46 LV gram done using BAH 13:50:48 Injector settings: Ml/sec: 5, Volume: 15, 13:50:54 EF : 60 % 13:50:57 Catheter removed. 13:51:05 A MULTIPACK JL 4.0 5Fr catheter was advanced over the wire and used for Left Coronary Angiography. 13:51:22 LCA angiography performed. 13:51:25 Injector settings: Ml/sec: 3, Volume: 6, 13:52:12 Catheter removed. 13:52:19 A MULTIPACK 3DRC 5Fr catheter was advanced over the wire and used for Right Coronary Angiography. 13:52:40 RCA angiography performed. 13:52:42 Injector settings: Ml/sec: 3, Volume: 6, 13:53:30 Catheter removed. 13:53:43 Proceeding to intervention. 13:54:53 INFLATOR Merit BasixCompak (AG8292) opened to sterile field. 13:54:54 CHOICE PT Extra Support 182cm wire ([id number]) opened to sterile field. 13:55:19 GUIDE 6FR HS I SH catheter ([id number]) opened to sterile field. 13:55:56 SHEATH 6FR Howard (HCW115) opened to sterile field. 13:56:12 Heparin Bolus 4000 units I.V. was administered by Buffie Diamond RN; for anticoagulation; verified with dr kiser 13:56:23 Sheath upsized to a 6 Fr Short. 13:56:29 6 Fr hs 1 sh guide catheter was inserted over the wire 13:56:34 choice pt wire advanced. 13:56:37 Wire advanced across lesion. 13:58:42 Integrilin (Bolus 2mg/ml) 9 ml I.V. was administered by Jaycee Diamond RN; for antiplatelet therapy; wasted 1 ml of vial 13:59:06 Place stent Inflation Number: 1 A TOM RX 3.5 x 38 stent ([id number]) was prepped and advanced across the Mid RCA. The stent was deployed at 17 FLETCHER for 0:10 (min:sec). 13:59:42 Stent catheter was removed intact over wire. 13:59:42 Wire removed. 13:59:43 Guide catheter removed. 13:59:49 EXOSEAL 6Fr (EX600) opened to sterile field. 13:59:59 Sheath removed intact; hemostasis achieved with Exoseal to the Right Femoral artery. 14:00:01 Procedure ended.(Physican Out) 14:00:22 Fluoroscopy time 03.10 minutes. 14:00:29 Fluoroscopy dose: 796 mGy 14:00:29 Flurop Dose total: 796 14:00:34 Contrast amount:Isovue 300 68ml. 14:00:35 Sharps counted by scrub and verified by R.N. 14:00:36 Insertion/operative site no bleeding no hematoma. 14:01:17 Post-op/insertion site Right Femoral artery dressed using a 4 x 4 and Tegaderm. 14:01:21 Post procedure rhythm: unchanged. 14:01:23 Estimated blood loss: 5 ml 14:01:25 Post procedure instruction explained to patient.Patient verbalizes understanding. 14:01:25 Patient needs reinforcement of post procedure teaching. 14:01:39 Procedure type changed to Cath procedure, Diagnostic procedure, LHC, LHC w/Coronaries, Sedation Charges, Moderate Sedation up to 15 minutes, PCI procedure, Coronary Stent, Coronary Stent Initial 14:01:40 Procedure and supply charges have been captured, reviewed, submitted and are correct. 14:01:46 Procedure Complication : No complications 14:01:48 Vital chart was stopped 14:01:48 See physician's report for complete and final results. 14:01:50 Report given to Pre/Post Procedure Room. 14:01:52 Patient transfered to Pre/Post Procedure Room with Stretcher. 14:01:59 Procedure ended. 14:01:59 Full Disclosure recording stopped 14:02:07 ACC-PCI Only Patient was given prescriptions, or instructed by Byron Kiser MD to start/continue the following medications upon discharge: Plavix 14:02:08 End room use (Document Last) 14:05:58 Plavix 600 mg P.O. was administered by Jaycee Diamond RN; for antiplatelet therapy; Intervention Summary Intervention Notes Time ActionType Lesion and Equipment Used Action# Pressure Duration Attributes 13:59:06 Place stent Mid RCA TOM RX 3.5 x 1 17 00:10 38 stent ([id number]) Device Usage Item Name Manufacture Quantity Catalog Number Hospital Part Current Minimal Lot# / Charge Number Stock Stock Serial# Code ACIST Syringe Acist 1 72830 [id number] 864110 126458 20 (22115) [employer] Bag Decanter Microtek 1 2001S 271132 49761 801295 5 (2001S) Medical Inc. Medline Cath Medline 1 [id number] 041002 42126 489293 5 Pack ([id number]) DIAGNOSTIC WIRE St Sandip 1 630951 398378 289075 419219 30 .035 260cm J wire (732239) ACIST Hand Acist 1 98177 660507 895175 248986 5 Control (35924) [employer] Inc ACIST Manifold Acist 1 87374 431623 215710 033682 5 (02835) [employer] Inc DIAGNOSTIC Cardinal 1 SD2882 985584 60097 213520 30 Multipack 5Fr Health catheter set (ON9880) Tegaderm 4 x 4 3M 1 1626W 451869 255587 097005 5 (1626W) SHEATH Prelude Merit 1 [id number]-6B-[id number] 245554 412188 119889 5 5Fr 0.035 Medical (WRA-1K-20-035) MULTIPACK Cardinal 1 040983 5 Pigtail 5 Fr Health catheter MULTIPACK JL Cardinal 1 623377 5 4.0 5Fr Health catheter MULTIPACK 3DRC Cardinal 1 600010 5 5Fr catheter Health INFLATOR Merit Merit 1 UC6397 067212 854668 728711 15 iKlax Media (HE4441) CHOICE PT Extra [place] 1 [id number] 234839 301188 469482 5 Support 182cm Scientific wire ([id number]) GUIDE 6FR HS I Medtronic 1 [id number] 336049 83591 913954 1 SH catheter ([id number]) SHEATH 6FR Terumo 1 RTB673 412883 263889 358719 40 Howard (DSW469) TOM RX 3.5 x Medtronic 1 [id number] 078922 8739898 432448 5 [id number] 38 stent ([id number]) EXOSEAL 6Fr Cardinal 1 EX600 022734 284182 787677 10 (EX600) Health Signature Audit Caret Stage Time Signature Unsigned Intra-Procedure 01/10/2018 Emilee Griffin 2:08:36 PM RT(R) Signatures Monitor : Emilee Griffin RT Signature : Date : Time : [id number] [place] [address]
[~2018-01-10 08:42] MED LIST changes: +ASPIRIN325 MG PO; +ATIVAN1 MG PO; +BUMEX 1 MG TAB1 MG PO; +CARAFATE1 G PO; +ELIQUIS2.5 MG PO; -LANTUS SOL100 UNIT/1 SC; +LANTUS SOLOSTAR PE SQ; +LIPITOR10 MG PO; +PERCOCET 10/3251 TA1 PO; +VENTOLIN HFA18 GM INJ
[2018-01-10 09:41] VITALS: BP 149/57; Ht 154.9 cm; Wt 101.8 kg
[2018-01-10 09:48] LABS: ANION GAP 10.4 mmol/L (8-16); CALCIUM 8.7 mg/dL (8.5-10.1); CARBON DIOXIDE 31.1 mmol/L (21.0-32.0); CREATININE - SERUM 1.2 mg/dL (0.6-1.3); POTASSIUM - SERUM 4.5 mmol/L (3.5-5.1)
[2018-01-10 09:50] LABS: HEMATOCRIT 37.4 % (36.0-48.0); HEMOGLOBIN 12.1 g/dL (12-16); LYMPHOCYTES 26.5 % (15-50); MCHC 32.4 g/dL (31.0-37.0); MCV 86.6 fL (80.0-100.0); MEAN PLATELET VOLUME 10.1 fL (7.4-10.4); NEUTROPHILS 61.6 % (40-80); PLATELET COUNT 206 10x3/uL (130-400); RBC 4.32 10x6/uL (4.00-5.40); RDW 14.7 % (11.5-14.5)
== END | disposition home or self-care (01) ==
LOC: D.CATH 08:42
PROVIDERS: Internal Medicine Interventional Cardiology
DX: I25.110 Atherosclerotic heart disease of native coronary artery with unstable angina pectoris (principal)
CPT/HCPCS: C9600; 93458

== ENCOUNTER 2018-09-27 23:40 | Emergency (ER) | payer MEDICARE ==
[~2018-09-27] VITALS: Ht 154.9 cm; Wt 100.0 kg
[2018-09-27 23:47] VITALS: Ht 154.9 cm; Wt 100.0 kg
[2018-09-27] MEDS ORDERED: LOPID600 MG PO (23:49)
[2018-09-28 01:50] VITALS: BP 134/80
== END 2018-09-28 01:50 | disposition home or self-care (01) ==
LOC: D.ER 23:40
DX: S09.90XA Unspecified injury of head, initial encounter (principal); W18.30XA Fall on same level, unspecified, initial encounter; Y93.89 Activity, other specified; Y92.019 Unspecified place in single-family (private) house as the place of occurrence of the external cause; S80.02XA Contusion of left knee, initial encounter

== ENCOUNTER 2019-06-22 01:35 | Inpatient (IN) | payer MEDICARE ==
[~2019-06-22] VITALS: Ht 154.9 cm; Wt 103.4 kg
[2019-06-22] VITALS (8 sets, daily range): BP systolic 100–135; BP diastolic 40–78; Ht 154.9 cm; Wt 103.4 kg
--- NOTE | ~2019-06-22 | HEMODYNAMI ---
PATIENT:MEL NOVOA MEDICAL RECORD: [id number] : 40 [facility] D2116 [id number] ADMISSION DATE: 06/22/19 Generatedon:06/22/201914:24 Patient name: MEL NOVOA Patient #: [id number] SSN: [id number] : 1940 Date of study: 06/22/2019 Page: Of Hemodynamic Procedure Report Patient Data Patient Demographics Procedure consent was obtained First Name: MEL Gender: Female Last Name: BRIGHT : 1940 Middle Initial: R Age: 78 year(s) Patient #: [id number] Race: SSN: [id number] Additional ID: [id number] Contact details Address: [address] [place] [address] State: [place] City: [place] Zip code: [address] Past Medical History Allergies Allergen Reaction Date Comments Reported Other 06/22/2019 PCN/MORPHINE/HYDROCODONE/SEE allergy LIST Admission Admission Data Admission Date: 06/22/2019 Admission Time: 2:57 Arrival Date: 06/22/2019 Arrival Time: 0:00 Room #: D.2116 Insurance Payor: Medicare [facility] #: [id number] Height (in.): 61.02 BSA: 2 (m2) Height (cm.): 155 BMI: 43.29 (kg/m2) Weight (lbs.): 229.28 Weight (kg.): 104 Lab Results Lab Result Date: 06/22/2019 Lab Result Time: 0:00 Biochemistry Name Units Result Min Max BUN mg/dl 36 --(----)-* 7 18 CK-MB ng/ml 14.5 --(----)-* 0 3.6 Creatinine mg/dl 1.7 --(----)-* 0.6 1.3 eGFR ml/min 31 *-(----)-- 90 120 NONAFRICAN Troponin l ng/ml 2.791 --(----)-* 0 0.06 CBC Name Units Result Min Max Hematocrit % 38.3 *-(----)-- 42 54 Hemoglobin g/dl 11.6 *-(----)-- 13.5 17.5 Procedure Procedure Types Cath Procedure Diagnostic Procedure [facility] w/Coronaries Sedation Charges Moderate Sedation up to 30 minutes PCI Procedure Coronary Stent Coronary Stent Initial Hemochron ACT Test Procedure Description Procedure Date Procedure Date: 06/22/2019 Procedure Start Time: 13:42 Procedure End Time: 14:20 Procedure Staff Name Function Luh Fidel RT Monitor Jaycee Diamond RN Nurse Nicole Bean RT Scrub Lio Mckinney MD Performing Physician Procedure Data Cath Procedure Fluoroscopy Diagnostic fluoroscopy Total fluoroscopy Time: time: 10.3 min 10.3 min Diagnostic fluoroscopy Total fluoroscopy dose: dose: 1150 mGy 1150 mGy Contrast Material Contrast Material Type Amount (ml) Isovue 300 101 Entry Location Entry Primary Successful Side Size Upsize Upsize Entry Closure Succes sful Closure Location (Fr) 1 (Fr) 2 (Fr) Remarks Device Remarks Femoral Right 5 Fr 6 Fr Exoseal artery Short Estimated blood loss: 10 ml Diagnostic catheters Device Type Used For End Catheter Placement MULTIPACK JL 4.0 5Fr Left Coronary catheter Angiography MULTIPACK 3DRC 5Fr Right Coronary catheter Angiography MULTIPACK Pigtail 5 Fr LV Angiography catheter Procedure Complications No complications Procedure Medications Medication Administration Route Dosage Oxygen etCO2 Nasal cannula 2 l/min Lidocaine 2% added to field 20 Heparin Flush Bag added to field 2 bags (1000units/500ml NS) 0.9% NaCl I.V. 100 ml/hr Versed I.V. 1 mg Fentanyl I.V. 50 mcg Versed I.V. 1 mg Fentanyl I.V. 50 mcg Heparin Bolus I.V. 47789 units Versed I.V. 1 mg Hemodynamics Rest BSA: 2 (m2) HGB: 11.6 (g/dl) O2 Consumption: Estimated: 173.28 (ml/min) O2 Consu mption indexed: Estimated:86.64 (ml/min/m) Heart Rate: 60 (bpm) Pressure Samples Time Site Value (mmHg) Purpose Heart Use Rate(bpm) 13:50 LV 115/34,40 Snapshot 67 13:51 AO 125/52(74) Pullback 66 13:51 LV 111/6,24 Pullback 66 Gradients Valve Time Site 1 Site 2 Mean SEP/DFP Peak To Heart Use (mmHg) (sec/min) Peak Rate (mmHg) (bpm) Aortic 13:51 LV AO 0 6 0 66 111/6,24 125/52(74) Calculations Valve P-P Mean Valve Index Valve Source Name Gradient Area Flow (cm2) Aortic 0 0 0 0 Snapshots Pre Cath Intra NCS Post Cath Vital Signs Time Heart Resp SPO2 etCO2 NIBP (mmHg) Rhythm Pain Sedation Rate (ipm) (%) (mmHg) Status Level (bpm) 13:36:30 61 17 95 38.2 124/48(102) NSR 0 (11) 10(A) , No pain 13:40:50 62 18 97 56.2 117/59(101) NSR 0 (11) 10(A) , No pain 13:45:12 60 13 97 24 111/62(92) NSR 0 (11) 10(A) , No pain 13:49:33 66 12 95 52.5 113/67(92) NSR 0 (11) 9(A) , No pain 13:53:55 65 14 96 57.7 129/63(91) NSR 0 (11) 9(A) , No pain 13:58:21 63 26 97 29.2 124/58(87) NSR 0 (11) 9(A) , No pain 14:02:41 64 31 97 1.5 121/61(89) NSR 0 (11) 9(A) , No pain 14:07:05 67 15 98 24 133/69(106) NSR 0 (11) 9(A) , No pain 14:11:36 67 16 98 4.5 121/66(100) NSR 0 (11) 9(A) , No pain 14:16:02 65 16 98 51.8 140/66(109) NSR 0 (11) 10(A) , No pain 14:20:28 66 17 99 53.2 142/65(113) NSR 0 (11) 10(A) , No pain Medications Time Medication Route Dose Verified Delivered Reason Note s Effectiveness by by 13:35:18 Oxygen etCO2 2 Robert Champion used for Nasal l/min St Devan Diamond die developer cannula 13:35:24 Lidocaine 2% added 20ml Robert Jones for local to vial St Devan Santos anesthetic field MD COSME 13:35:30 Heparin Flush added 2 bags Robert Jones used for Bag to Pending Sale To [facility] procedure (1000units/500ml field MD COSME NS) 13:35:39 0.9% NaCl I.V. 100 Robert Buffie Per physician ml/hr St Devan Diamond RN, MD 13:40:53 Versed I.V. 1 mg Lio Buffie for sedation Hank Diamond RN 13:40:59 Fentanyl I.V. 50 mcg Lio Buffie for sedation Hank Diamond RN 13:46:33 Versed I.V. 1 mg Lio Buffie for sedation Hank Diamond RN 13:46:37 Fentanyl I.V. 50 mcg Lio Buffie for sedation Hank Diamond RN 13:58:15 Heparin Bolus I.V. 10,000 Lio Buffie for VERI FIED units Hank Diamond RN anticoagulation WITH DR MCKINNEY 14:08:24 Versed I.V. 1 mg Lio Buffie for sedation Hank Diamond RN Procedure Log Time Note 12:30:45 Informed consent obtained and on chart 12:30:54 Arrival Date: 06/22/2019 12:00:00 AM 12:31:16 Insurance Payor : Medicare 12:31:21 Patient Height : 61.02 inches 12:31:26 Patient Weight : 229.28 lbs 12:32:52 Lab Result : BUN 36 mg/dl 12:32:52 Lab Result : Hemoglobin 11.6 g/dl 12:32:52 Lab Result : Hematocrit 38.3 % 12:32:52 Lab Result : eGFR NONAFRICAN 31 ml/min 12:32:52 Lab Result : Creatinine 1.7 mg/dl 12:32:52 Lab Result : CK-MB 14.5 ng/ml 12:32:52 Lab Result : Troponin l 2.791 ng/ml 12:34:58 Procedure Status Urgent Heart Cath (IP). 12:37:35 Patient allergic to Other allergyPCN/MORPHINE/HYDROCODONE/SEE LIST 12:38:09 Lab results completed and on chart. 12:50:47 Time tracking: Regular hours (M-F 7:00 - 5:00) 12:50:58 Plan of Care:Hemodynamics will remain stable., Cardiac rhythm will remain stable., Comfort level will be maintained., Respiratory function will remain adequate., Patient/ family verbilizes understanding of procedure., Procedure tolerated without complication., Recovers from procedure without complications.. 13:06:46 Nicole Vikas RT(R) sent for patient. Start room use. 13:30:49 Patient received from Med II to CCL 1 Alert and oriented. Tansferred to table in Supine position. 13:34:33 SUMMER COOLEY WAS CONTACTED BY HERVE CHAMPION STATES HAS DEMENTIA. . 13:34:40 ACC Patient presents with Stable Angina CCS Anginal Class 4--Inability to carry out any physical activity w/o angina. Angina may occur at rest. 13:35:06 Warm blankets applied, and héctor hugger turned on for patient comfort. 13:35:07 Correct patient and procedure confirmed by team. 13:35:07 ECG and BP/O2 sat monitors applied to patient. 13:35:08 Vital chart was started 13:35:09 Baseline sample Acquired. 13:35:16 Rhythm: sinus rhythm 13:35:18 Oxygen 2 l/min etCO2 Nasal cannula was administered by Jaycee Diamond RN; used for procedure; Verbal order read back and verified. 13:35:18 Full Disclosure recording started 13:35:19 - 13:35:24 Lidocaine 2% 20ml vial added to field was administered by Robert Santos MD; for local anesthetic; Verbal order read back and verified. 13:35:24 H&P Date Dictated: 06/22/2019 Within 30 days and on chart.. 13:35:26 Pre-procedure instructions explained to patient. 13:35:28 Pre-op teaching completed and patient verbalized understanding. 13:35:30 Heparin Flush Bag (1000units/500ml NS) 2 bags added to field was administered by Robert Santos MD; used for procedure; Verbal order read back and verified. 13:35:31 Family unavailable. 13:35:34 Patient NPO since Midnight. 13:35:39 0.9% NaCl 100 ml/hr I.V. was administered by Jaycee Diamond RN; Per physician; Verbal order read back and verified. 13:35:39 Is the patient allergic to Iodine/contrast media? No. 13:35:43 Was the patient premedicated? Yes 13:35:54 Is patient on blood thinner?Yes 13:35:59 ACC The patient was administered the following blood thiners within the last 24 hours: ACCPlavix 13:36:13 Patient diabetic? Yes. 13:36:16 If diabetic: On Metformin? No 13:36:20 ----Pre-sedation anethsthesia assessment.---- 13:36:25 Previous problem with sedation/anesthesia? No ? 13:36:27 Snore? Yes 13:36:29 Sleep apnea? No 13:36:32 Deviated septum? No 13:36:34 Opens mouth fully? Yes 13:36:37 Sticks out tongue? Yes 13:37:02 Airway obstruction? No ? 13:37:06 Dentures? No ? 13:37:13 Pre procedure: right dorsailis pedis pulse 1+ Palpable, but thready & weak; easily obliterated 13:37:25 Patient pain scale 8/10 CHEST. 13:37:42 IV patent on arrival in right hand with 0.9% NaCl at KVO. 13:37:49 Stress Test: no; N/A ? 13:37:54 Right groin area was prepped with chlora-prep and draped in sterile fashion 13:37:56 Alarms reviewed by R. N. 13:37:57 Sharps counted by scrub and verified by R.N. 13:38:03 Use device set Femoral Dx 13:38:05 ACIST Syringe (83534) opened to sterile field. 13:38:05 Bag Decanter () opened to sterile field. 13:38:06 Medline Cath Pack ([id number]) opened to sterile field. 13:38:07 ACIST Hand Control (04697) opened to sterile field. 13:38:08 ACIST Manifold (22037) opened to sterile field. 13:38:10 DIAGNOSTIC Multipack 5Fr catheter set (DL4044) opened to sterile field. 13:38:11 Tegaderm 4 x 4 (1626W) opened to sterile field. 13:38:13 SHEATH 5FR [place] (UZR478) opened to sterile field. 13:38:13 EMERALD Guide Wire (199-395) opened to sterile field. 13:38:26 Physician arrived 13:38:27 --------ALL STOP TIME OUT------ 13:38:28 Final Timeout: patient, procedure, and site verified with staff and physician. All members of the team are in agreement. 13:38:30 Right groin site verified by team. 13:38:36 Fire Safety Assessment: A--An alcohol-based skin anteseptic being used preoperatively., C--Open oxygen or nitrous oxide is being used., D--An ESU, laser, or fiber-optic light is being used. 13:39:01 Physical assessment completed. ASA score P 2 - A patient with mild systemic disease as per Lio Mckinney MD. 13:39:07 3b) 30-44 Moderately reduced kidney function. 13:39:12 Maximum allowable contrast dose (3.7 X eGFR X 0.75)86 ml. 13:39:23 Sedation plan: IV Moderate Sedation Medication:Versed, Fentanyl 13:40:53 Versed 1 mg I.V. was administered by Jaycee Diamond RN; for sedation; Verbal order read back and verified. 13:40:59 Fentanyl 50 mcg I.V. was administered by Jaycee Diamond RN; for sedation; Verbal order read back and verified. 13:42:36 Procedure started. 13:42:39 Zero performed for pressure channel P1 13:42:56 Local anesthetic to right femoral artery with Lidocaine 2% by Lio alva MD.INITIAL ACCESS ONLY 13:44:18 A 5 Fr sheath was inserted into the Right Femoral artery 13:46:05 A MULTIPACK JL 4.0 5Fr catheter was advanced over the wire and used for Left Coronary Angiography. 13:46:33 Versed 1 mg I.V. was administered by Jaycee Diamond RN; for sedation; Verbal order read back and verified. 13:46:37 Fentanyl 50 mcg I.V. was administered by Jaycee Diamond RN; for sedation; Verbal order read back and verified. 13:46:37 Injector settings: Ml/sec: 3, Volume: 6, 13:46:42 LCA angiography performed. 13:47:30 Catheter removed. 13:47:39 A MULTIPACK 3DRC 5Fr catheter was advanced over the wire and used for Right Coronary Angiography. 13:47:46 Injector settings: Ml/sec: 3, Volume: 6, 13:49:16 RCA angiography performed. 13:49:25 Catheter removed. 13:50:04 A MULTIPACK Pigtail 5 Fr catheter was advanced over the wire and used for LV Angiography. 13:50:31 Injector settings: Ml/sec: 5, Volume: 15, 13:51:03 LV gram done using BAH 13:51:18 EF : 60 % 13:51:39 LV hemodynamics recorded. 13:51:42 Catheter removed. 13:51:48 Proceeding to intervention. 13:52:50 INFLATOR Merit BasixCompak (NL9629) opened to sterile field. 13:52:51 BMW 300cm Richey 2 J wire ([id number]) opened to sterile field. 13:52:52 SHEATH 6FR [place] (PDD432) opened to sterile field. 13:52:53 TUBING High Pressure Extension Tubing (Hank) (OP4697S) opened to sterile field. 13:53:20 GUIDE 6FR AR 1.0 catheter (RB3BD33) opened to sterile field. 13:53:33 ACC Pre-intervention NABEEL Flow is 3. 13:53:46 Sheath upsized to a 6 Fr Short. 13:54:13 Pre PCI Site: Knik mRCA has 90% stenosis. 13:54:23 Pre PCI Site: Knik dRCA has 99% stenosis. 13:54:33 6 Fr AR1 guide catheter was inserted over the wire 13:54:42 WPE658 wire advanced. 13:58:04 Wire advanced across lesion. 13:58:15 Heparin Bolus 10,000 units I.V. was administered by Jaycee Diamond RN; for anticoagulation; VERIFIED WITH DR MCKINNEY Verbal order read back and verified. 14:00:43 Inflate balloon Inflation number: 1 A EMERGE OTW 2.0 x 15 balloon ([id number]) was prepped and advanced across the Dist RCA , then inflated to 14 FLETCHER for 0:20 (min:sec) . 14:02:16 Balloon removed over the wire. 14:06:30 Place stent Inflation Number: 2 A TOM OTW 2.25 x 18 stent ([id number] ) was prepped and advanced across the Dist RCA . The stent was deployed at 13 FLETCHER for 0:00 (min:sec) . 14:07:26 Stent catheter was removed intact over wire. 14:08:24 Versed 1 mg I.V. was administered by Jaycee Diamond RN; for sedation; Verbal order read back and verified. 14:10:17 Inflate balloon Inflation number: 1 A EMERGE OTW 3.0 x 20 balloon ([id number]) was prepped and advanced across the Mid RCA , then inflated to 15 FLETCHER for 0:00 (min:sec) . 14:11:15 Inflation number: 2 The EMERGE OTW 3.0 x 20 balloon ([id number]) was reinflated across the Mid RCA , to 16 FLETCHER for 0:31 (min:sec) . 14:12:58 Balloon removed over the wire. 14:13:01 Wire removed. 14:13:02 Guide catheter removed. 14:13:12 EXOSEAL 6Fr (EX600) opened to sterile field. 14:13:24 ACC Post-intervention NABEEL Flow is 3. 14:13:35 Post PCI Site: Knik mRCA has 0% stenosis. 14:13:47 Post PCI Site: Knik dRCA has 0% stenosis. 14:14:10 Sheath removed intact; hemostasis achieved with Exoseal to the Right Femoral artery. 14:14:47 Contrast amount:Isovue 300 101ml. 14:14:51 Maximum allowable dose exceeded? Yes. 14:15:05 Fluoroscopy time 10.30 minutes. 14:15:08 Procedure ended.(Physican Out) 14:15:22 Fluoroscopy dose: 1150 mGy 14:15:22 Flurop Dose total: 1150 14:15:34 Dose Area Product 68862 mGy/cm. 14:15:37 Sharps counted by scrub and verified by R.N. 14:15:41 Insertion/operative site no bleeding no hematoma. 14:15:47 Post-op/insertion site Right Femoral artery dressed using a 4 x 4 and Tegaderm. 14:15:54 Post right femoral artery:stable 14:15:57 Post Procedure Pulses reassessed and unchanged 14:16:10 Post-procedure physical assessment completed. ASA score P 2 - A patient with mild systemic disease as per Lio Mckinney MD. 14:17:23 Post procedure rhythm: unchanged. 14:17:27 Estimated blood loss: 10 ml 14:17:29 Post procedure instruction explained to patient.Patient verbalizes understanding. 14:17:31 Patient needs reinforcement of post procedure teaching. 14:18:41 Procedure type changed to Cath procedure, Diagnostic procedure, LHC, LH C w/Coronaries, Sedation Charges, Moderate Sedation up to 30 minutes, PCI procedure, Coronary Stent, Coronary Stent Initial, Hemochron ACT Test 14:18:43 Procedure and supply charges have been captured, reviewed, submitted an d are correct. 14:19:41 Procedure Complication : No complications 14:19:48 Vital chart was stopped 14:19:51 [facility] Findings: MVD- PCI performed (see procedure note) 14:19:59 Operative report dictated upon procedure completion. 14:20:01 See physician's report for complete and final results. 14:20:04 Report given to [facility]. 14:20:10 Patient transfered to [facility] with Bed. 14:20:13 Procedure ended. 14:20:13 Full Disclosure recording stopped 14:22:17 ACC-PCI Only Patient was given prescriptions, or instructed by Lio Mckinney MD to start/continue the following medications upon discharge: Plavix 14:22:50 ACT drawn and resulted at 340 seconds. (normal therapeutic range 180-24 0 seconds). 14:23:01 End room use (Document Last) 14:23:59 End room use (Document Last) Intervention Summary Intervention Notes Time ActionType Lesion and Equipment Action# Pressure Duration Attributes Used 14:00:43 Inflate Dist RCA EMERGE OTW 1 14 00:20 balloon 2.0 x 15 balloon ([id number]) 14:06:30 Place stent Dist RCA TOM OTW 2.25 2 13 00:00 x 18 stent ([id number]) 14:10:17 Inflate Mid RCA EMERGE OTW 1 15 00:00 balloon 3.0 x 20 balloon ([id number]) 14:11:15 Reinflate Mid RCA EMERGE OTW 2 16 00:31 balloon 3.0 x 20 balloon ([id number]) Device Usage Item Name Manufacture Quantity Catalog Number Hospital Part Current Min imal Lot# / Charge Number Stock Stock Serial# Code ACIST Syringe Acist 1 06888 192833 109604 207042 20 (52466) [employer] Bag Decanter Microtek 1 2001S 256123 95516 306067 5 () Medical Inc. Medline Cath Medline 1 [id number] 312538 30916 835051 5 Pack ([id number]) ACIST Hand Acist 1 18357 938541 794549 645648 5 Control Medical (14321) Systems Inc ACIST Acist 1 28087 518522 825475 804082 5 Manifold Medical (45155) Systems Inc DIAGNOSTIC Cardinal 1 [id number] 272605 04918 943551 30 Multipack 5Fr Health catheter set (KJ8521) Tegaderm 4 x 3M 1 1626W 051353 091686 400816 5 4 (1626W) SHEATH 5FR Terumo 1 EYO368 507074 410804 987563 5 [place] (TDF899) EMERALD Guide Cardinal 1 502-455 902990 394142 438700 5 Wire Health (502-455) MULTIPACK JL Cardinal 1 674444 5 4.0 5Fr Health catheter MULTIPACK Cardinal 1 698602 5 3DRC 5Fr Health catheter MULTIPACK Cardinal 1 461193 5 Pigtail 5 Fr Health catheter INFLATOR Merit 1 CS4859 294752 772177 962964 15 [facility] Medical BasixCompak (EL7234) BMW 300cm Rojas 1 [id number] 092555 879120 226090 5 Richey 2 J Vascular wire (7760283W) SHEATH 6FR Terumo 1 TFO474 921272 369134 537349 40 [place] (VHW084) TUBING High Merit 1 [id number] 537921 06808 282228 10 Pressure Medical Extension Tubing (Mckinney) (LF2577W) GUIDE 6FR AR Medtronic 1 DY7EX83 597422 08295 174945 1 1.0 catheter (QF6SV34) EMERGE OTW Randolph 1 [id number] 104387 575636 846544 5 08590135 2.0 x 15 Scientific balloon ([id number]) TOM OTW 2.25 Medtronic 1 [id number] 075311 38462 190685 5 [id number] x 18 stent ([id number]) EMERGE OTW [place] 1 [id number] 840888 180210 968066 5 [id number] 3.0 x 20 Scientific balloon ([id number]) EXOSEAL 6Fr Cardinal 1 EX600 485280 412276 154840 10 (EX600) Health Signature Audit [place] Stage Time Signature Unsigned Intra-Procedure 06/22/2019 Luh 2:23:30 PM Fidel RT(R) (CV) Intra-Procedure 06/22/2019 Jaycee Diamond RN 2:23:59 PM Intra-Procedure 06/22/2019 Lio Mckinney MD 2:24:29 PM [place] [id number]
[~2019-06-22 01:35] MED LIST changes: +LOPID600 MG PO
[2019-06-22 02:09] LABS: BASOPHILS 0.3 % (0-2); EOSINOPHILS 4.6 % (0-7); HEMATOCRIT 38.3 % (36.0-48.0); HEMOGLOBIN 11.6 g/dL (12-16); IMMATURE GRANULOCYTES 0.3 % (0-5); LYMPHOCYTES 26.1 % (15-50); MCH 28.3 pg (26.0-34.0); MCHC 30.3 g/dL (31.0-37.0); MCV 93.4 fL (80.0-100.0); MEAN PLATELET VOLUME 9.7 fL (7.4-10.4); MONOCYTES 12.3 % (2-11); NEUTROPHILS 56.4 % (40-80); PLATELET COUNT 247 10x3/uL (130-400); RDW 14.2 % (11.5-14.5); WBC 6.3 10x3/uL (4.8-10.8)
[2019-06-22 02:16] LABS: CALC OSMOLALITY 284 mosm/kg (275-300); CALCIUM 8.8 mg/dL (8.5-10.1); CARBON DIOXIDE 29.4 mmol/L (21.0-32.0); CHLORIDE - SERUM 103 mmol/L (98-107); CREATININE - SERUM 1.7 mg/dL (0.6-1.3); GLUCOSE 112 mg/dL (74-106); SODIUM 138 mmol/L (136-145); UREA NITROGEN 36 mg/dL (7-18); eGFR NON AFRICAN AMERICAN 31 mL/min (90-120)
[2019-06-22 02:17] LABS: APTT 26.2 SECONDS (22.8-39.4); INR 0.92 (0.85-1.17); PROTIME 12.3 SECONDS (11.6-15.0)
[2019-06-22 02:38] LABS: ALBUMIN 3.2 g/dL (3.4-5.0); ALKALINE PHOSPHATASE 94 U/L (30-120); ALT (SGPT) 21 U/L (10-68); BILIRUBIN - TOTAL 0.25 mg/dL (0.2-1.3); CKMB 1.8 U/L (0.0-3.6); CREATINE KINASE 162 UL (21-215); MAGNESIUM - SERUM 2.2 mg/dL (1.8-2.4); PRO BNP 1087 pg/mL (0-450); PROTEIN - SERUM 6.5 g/dL (6.4-8.2)
[2019-06-22 02:40] LABS: TROPONIN-I 0.541 ng/mL (0.000-0.060)
[2019-06-22] MEDS ORDERED: TYLENOL W/CODEI1 TAB PO (04:37)
[2019-06-22] MEDS ORDERED: LISINOPRIL2.5 MG PO (04:41)
[2019-06-22 07:19] LABS: CKMB 14.5 U/L (0.0-3.6)
[2019-06-22 07:20] LABS: CREATINE KINASE 275 UL (21-215); TROPONIN-I 2.791 ng/mL (0.000-0.060)
[2019-06-22 08:53] LABS: BASOPHILS 0.3 % (0-2); EOSINOPHILS 3.3 % (0-7); HEMATOCRIT 36.9 % (36.0-48.0); HEMOGLOBIN 10.9 g/dL (12-16); IMMATURE GRANULOCYTES 0.1 % (0-5); LYMPHOCYTES 24.2 % (15-50); MCH 28.2 pg (26.0-34.0); MCHC 29.5 g/dL (31.0-37.0); MCV 95.3 fL (80.0-100.0); MEAN PLATELET VOLUME 10.2 fL (7.4-10.4); MONOCYTES 10.8 % (2-11); NEUTROPHILS 61.3 % (40-80); PLATELET COUNT 269 10x3/uL (130-400); RBC 3.87 10x6/uL (4.00-5.40); RDW 14.4 % (11.5-14.5); WBC 6.7 10x3/uL (4.8-10.8)
[2019-06-22 09:03] LABS: CALCIUM 8.9 mg/dL (8.5-10.1); CARBON DIOXIDE 31.4 mmol/L (21.0-32.0); CHOL - HDL RATIO 2.9 ratio (2.3-4.1); CREATININE - SERUM 1.8 mg/dL (0.6-1.3); LDL-HDL RATIO 1.5 ratio (1.5-3.5)
[2019-06-22 09:04] LABS: ANION GAP 8.8 mmol/L (8-16); POTASSIUM - SERUM 5.2 mmol/L (3.5-5.1)
--- NOTE | 2019-06-22 14:03 | CN ---
PATIENT NAME:MEL NOVOA MEDICAL RECORD: [id number] : 40 LOCATION:D. D.2116 ADMIT DATE: 06/22/19 ACCOUNT: [id number] CONSULTING PHYSICIAN: NANY JHAVERI MD REFERRING PHYSICIAN: MEDINA CUMMINGS MD DATE OF CONSULTATION: 06/22/2019 HISTORY OF PRESENT ILLNESS: A 78-year-old female with known history of coronary artery disease, status post intervention, most recently in the right coronary by Dr. Kiser approximately 18 months ago, history of hypertension, hyperlipidemia, INTOLERANT TO STATINS in the past, presented with onset of rest symptoms, chest tightness, pressure radiating to the jaw ____ by dyspnea, presented to the ER, was found to have elevated cardiac enzymes consistent with NSTEMI. We are asked to see her concerning her cardiovascular status. PAST MEDICAL HISTORY: Includes: 1. History of hypertension. 2. Hyperlipidemia. 3. Coronary artery disease as described above. 4. Obstructive pulmonary disease. 5. Osteoarthritis. MEDICATIONS: Typically include Bumex 1 mg p.o. daily, Carafate 1 gram b.i.d., Namenda 5 mg p.o. b.i.d., Ativan 1 mg p.o. b.i.d., Lexapro 20 mg p.o. daily, aspirin 81 daily, [place] 10/325 b.i.d., lisinopril 2.5 daily, and Ventolin 2 puffs b.i.d. ALLERGIES: MORPHINE AND PENICILLIN. SOCIAL HISTORY: Nonsmoker, nondrinker. Typically, she is able to take care of all her ADLs. REVIEW OF SYSTEMS: The patient reports easy bruising but reports no swollen glands. The patient reports no fever, no night sweats, no significant weight gain, no significant weight loss. No significant exercise tolerance. The patient reports no dry eyes, no irritation, no vision change. Patient reports no difficulty hearing and no ear pain. Patient reports no frequent nose bleeds or nose and sinus problems. Patient reports on arm pain on exertion. No shortness of breath while lying down. No history of heart murmur. Patient reports no cough, no wheezing or coughing up blood. Patient reports no abdominal pain, no vomiting. Normal appetite. No diarrhea and not vomiting blood. No nausea and no constipation. Patient reports no incontinence. No difficulty urinating. No hematuria. No increased frequency. Patient reports no muscle aches. No weakness, no arthralgias, no back pain. No swelling of the extremities. Patient reports no abnormal mole, no jaundice, no rashes. Reports no loss of consciousness. No weakness and no numbness. No seizures, dizziness, or headaches. The patient reports no depression, no sleep disturbance, feeling safe in a relationship and no alcohol abuse. Patient reports on fatigue. Reports no runny nose or sinus pressure. No itching, no hives, and no frequent sneezing. PHYSICAL EXAMINATION: GENERAL: Well-developed, well-nourished white female, in no acute distress, appears stated age. HEENT: Normocephalic, atraumatic. CONSULT REPORT [id number] MEL NOVOA NECK: No JVD or bruit. HEART: Irregular, rate is controlled, II/ systolic ejection murmur. LUNGS: Good air excursion. ABDOMEN: Soft, nontender. EXTREMITIES: Pulses 2+ with no edema. DIAGNOSTIC DATA: EKG initially showed left bundle atrial fibrillation. IMPRESSION: Acute coronary syndrome, atrial fibrillation. PLAN: For angiography, intervention based on the above. TRANSINT:[id number] Voice Confirmation ID: [id number] DOCUMENT ID: [id number] NANY JHAVERI MD at 1403 CC: [id number] DICTATION DATE: 06/22/19 0839 ENVIRONMENTAL SERVICE AIDE: 06/22/19 1259 ADM IN [place] [address] [place] [address]
--- NOTE | 2019-06-22 14:29 | NUR ---
1428- DR QUEEN CALLED AND SPOKE WITH SUMMER COOLEY POST PROCEDURE. PT ASKED NOT TO CALL HER DUE TO HIM HAVING DEMENTIA.
--- NOTE | 2019-06-22 14:45 | NUR ---
RECEIVED PT BACK FROM [employer] AND [employer]ING [employer]PERVIS[employer] VSS PPPX4 DRSG C/D/I TO RT GROIN AROUSES WHEN SPOKEN TO
--- NOTE | 2019-06-22 19:21 | NUR ---
RECEIVED BEDSIDE REPORT. PATIENT IS ALERT AND ORIENTED, RESTING COMFORTABLY IN BED. RESPIRATIONS ARE EVEN AND UNLABORED. NO S/S OF DISTRESS. NO C/O PAIN. RIGHT GROIN NO SIGNS OF BLEEDING, BRUISING OR HEMATOMA. CALL LIGHT WITHIN REACH. WILL CPOC.
[2019-06-22 21:18] LABS: BILIRUBIN NEGATIVE (NEGATIVE); GLUCOSE NEGATIVE (NEGATIVE); KETONE NEGATIVE (NEGATIVE); NITRITE NEGATIVE (NEGATIVE); SPECIFIC GRAVITY 1.015 (1.005-1.020); UROBILINOGEN NORMAL (NORMAL)
[2019-06-23 09:42] VITALS: BP 111/49
[2019-06-23 11:18] VITALS: BP 110/32
[2019-06-23] MEDS ORDERED: PLAVIX75 MG PO (13:21)
--- NOTE | 2019-06-23 16:21 | MORECARE ---
CASE MANAGEMENT DISCHARGE SUMMARY PATIENT: MEL NOVOA UNIT: [id number] ADM DATE: 06/22/19 AGE: 78 : 40 SEX: F ROOM/BED: D.2116 AUTHOR: YOBANY SANTILLAN PHYSICIAN: REFERRING PHYSICIAN: MEDINA CUMMINGS MD DATE OF SERVICE: 06/23/19 Discharge Plan Patient Name: MEL NOVOA Facility: [facility]:[place] : 1940 Planned Disposition: Anticipated Discharge Date: Discharge Date: Expected LOS: Initial Reviewer: [email or web address] Initial Review Date: 06/22/2019 Generated: 06/23/19 5:20 pm Patient Name: MEL NOVOA Page [id number] at 1621 All edits/amendments must be made on the electronic document DICTATION DATE: 06/23/19 162 PROPAGATOR LABORER: [email or web address] 06/23/190 RPT#: [id number] DC DATE: STATUS: ADM IN [facility] [address] [place] [address] END OF REPORT
--- NOTE | 2019-06-23 16:30 | MORECARE ---
CASE MANAGEMENT DISCHARGE SUMMARY PATIENT: MEL NOVOA UNIT: [id number] ADM DATE: 06/22/19 AGE: 78 : 40 SEX: F ROOM/BED: D.[facility] AUTHOR: YOBANY SANTILLAN PHYSICIAN: REFERRING PHYSICIAN: MEDINA CUMMINGS MD DATE OF SERVICE: 06/23/19 Discharge Plan Patient Name: [facility]EL NOVOA [facility] [facility] 1940 Planned Disposition: Anticipated Discharge Date: Discharge Date: Expected LOS: Initial Reviewer: [email or web address] Initial Review Date: 06/22/2019 Generated: 06/23/19 5:29 pm DCPIA - Discharge Planning Initial Assessment Updated by [email or web address]: Laury Schilling on 06/23/19 4:22 pm * Is the patient Alert and Oriented? Yes * How many steps to enter\exit or inside your home? 0/0 * PCP [facility] * Pharmacy [facility] IN [place] * Preadmission Environment Home with Family * ADLs Independent * Equipment Bedside Commode Elevated [place] Seat Glucometer Grab Bars Rolling Walker Shower Chair Walker Wheelchair * List name and contact numbers for known caregivers / representatives who currently or will assist patient after discharge: LIVES WITH LUCÍA [phone] * Community resources currently utilized None * Additional services required to return to the preadmission environment? Yes * Can the patient safely return to the preadmission environment? Yes * Has this patient been hospitalized within the prior 30 days at any hospital? No Last DP export: 06/23/19 3:21 pm Patient Name: MEL NOVOA Page [id number] at 1630 All edits/amendments must be made on the electronic document DICTATION DATE: 06/23/19 162 PAY PER CLICK STRATEGIST: ANUJ 06/23/19 162 RPT#: [id number] DC DATE: STATUS: ADM IN [facility] [address] [place] [address] END OF REPORT
--- NOTE | 2019-06-23 16:45 | MORECARE ---
CASE MANAGEMENT DISCHARGE SUMMARY PATIENT: MEL NOVOA UNIT: [id number] ADM DATE: 06/22/19 AGE: 78 : 40 SEX: F ROOM/BED: D.3511 AUTHOR: JACQUE,DOC PHYSICIAN: REFERRING PHYSICIAN: MEDINA CUMMINGS MD DATE OF SERVICE: 06/23/19 Discharge Plan Patient Name: MEL NOVOA Facility: [facility]:[place] : 1940 Planned Disposition: Anticipated Discharge Date: Discharge Date: Expected LOS: Initial Reviewer: [email or web address] Initial Review Date: 06/22/2019 Generated: 06/23/19 5:45 pm Comments DCP- Discharge Planning Updated by [email or web address]: Laury Schilling on 06/23/19 3:[address] Patient Name: MEL NOVOA Admission Status: ER Accout number: [id number] Admission Date: 06-22-2019 : 1940 Admission Diagnosis: Attending: MEDINA CUMMINGS Current LOS: 1 Anticipated DC Date: Planned Disposition: Primary Insurance: [facility] [employer] Discharge Planning Comments: CM met with patient to complete initial dc planning assessment. CM educated patient on the CM role and verbal consent given by patient to complete assessment. CM verified patient's address, phone number, and emergency contact phone numbers. Patient lives atH home with Lucía () [phone]. At discharge patient plans to return home and feels this is a safe discharge. While CM completed assessment, patient was on O2. Orders received to obtain walktest to see if patient requires o2 at home. Respiratory therapist administered walk test. On room air o2 saturated at 94 % and with exercise 02 sat at 95%. oxygen remained off. CM discussed availability of home health, rehab services, and medical equipment. Patient denied known discharge needs at this time. Transportation provider at discharge will be Martine (devinr) . CM will continue to follow and will assist as needed with dc plans/needs. [employer] Driver: Laury Schilling msn, rn, cm DCPIA - Discharge Planning Initial Assessment Updated by [email or web address]: Laury Schilling on 06/23/19 4:22 pm * Is the patient Alert and Oriented? Yes * How many steps to enter\exit or inside your home? 0/0 * PCP [facility] * Pharmacy [facility] IN [place] * Preadmission Environment Home with Family * ADLs Independent * Equipment Bedside Commode Elevated [place] Seat Glucometer Grab Bars Rolling Walker Shower Chair Walker Wheelchair * List name and contact numbers for known caregivers / representatives who currently or will assist patient after discharge: LIVES WITH LUCÍA [phone] * Community resources currently utilized None * Additional services required to return to the preadmission environment? Yes * Can the patient safely return to the preadmission environment? Yes * Has this patient been hospitalized within the prior 30 days at any hospital? No Last DP export: 06/23/19 3:30 pm Patient Name: MEL NOVOA Page [id number] at 1645 All edits/amendments must be made on the electronic document DICTATION DATE: 06/23/191644 [employer] OPERATOR: ANUJ 06/23/191644 RPT#: [id number] DC DATE: STATUS: ADM IN [facility] [address] [place] [address] END OF REPORT
--- NOTE | 2019-06-23 17:59 | NUR ---
02 SAT 94% ON RA WITH AMBULATION. IV AND TELEMETRY DCD. DC PLANS GIVEN. UNDERSTAND ING VOICED. ESCORTED TO CAR BY W/C.
== END 2019-06-23 18:00 | disposition home or self-care (01) | DRG 247 ==
LOC: D.ER 01:35 → D.M2 02:57 → OBSVTIME 02:57 → D.M2 19:12
PROVIDERS: Emergency Medicine; Internal Medicine Cardiovascular Disease; ADMIT Internal Medicine Nephrology; ATTEND Internal Medicine Nephrology
PROC: B2151ZZ Fluoroscopy of Left Heart using Low Osmolar Contrast (ICD-10-PCS; 2019-06-22)
PROC: 4A023N7 Measurement of Cardiac Sampling and Pressure, Left Heart, Percutaneous Approach (ICD-10-PCS; 2019-06-22)
PROC: 027034Z Dilation of Coronary Artery, One Artery with Drug-eluting Intraluminal Device, Percutaneous Approach (ICD-10-PCS; principal; 2019-06-22 13:06)
PROC: B2111ZZ Fluoroscopy of Multiple Coronary Arteries using Low Osmolar Contrast (ICD-10-PCS; 2019-06-22 13:06)
DX: I21.4 Non-ST elevation (NSTEMI) myocardial infarction (principal); N17.9 Acute kidney failure, unspecified; I48.91 Unspecified atrial fibrillation; I24.9 Acute ischemic heart disease, unspecified; I12.9 Hypertensive chronic kidney disease with stage 1 through stage 4 chronic kidney disease, or unspecified chronic kidney disease; E11.22 Type 2 diabetes mellitus with diabetic chronic kidney disease; N18.9 Chronic kidney disease, unspecified; I25.10 Atherosclerotic heart disease of native coronary artery without angina pectoris; E78.5 Hyperlipidemia, unspecified; J45.909 Unspecified asthma, uncomplicated

== ENCOUNTER 2019-12-24 08:29 | Emergency (ER) | payer OTHER, MEDICARE ==
[~2019-12-24] VITALS: Ht 154.9 cm; Wt 103.6 kg
[~2019-12-24 08:29] MED LIST changes: +LISINOPRIL2.5 MG PO
[2019-12-24 08:32] VITALS: Ht 154.9 cm; Wt 103.6 kg
[2019-12-24 08:49] LABS: BASOPHILS 0.1 % (0-2); EOSINOPHILS 4.3 % (0-7); HEMATOCRIT 34.7 % (36.0-48.0); HEMOGLOBIN 10.6 g/dL (12-16); IMMATURE GRANULOCYTES 0.3 % (0-5); LYMPHOCYTES 21.2 % (15-50); MCHC 30.5 g/dL (31.0-37.0); MCV 91.8 fL (80.0-100.0); MEAN PLATELET VOLUME 9.4 fL (7.4-10.4); NEUTROPHILS 65.1 % (40-80); PLATELET COUNT 251 10x3/uL (130-400); RBC 3.78 10x6/uL (4.00-5.40)
[2019-12-24 08:57] LABS: ANION GAP 10.1 mmol/L (8-16); CALCIUM 8.8 mg/dL (8.5-10.1); CARBON DIOXIDE 29.3 mmol/L (21.0-32.0); CREATININE - SERUM 1.5 mg/dL (0.6-1.3); POTASSIUM - SERUM 4.4 mmol/L (3.5-5.1)
[2019-12-24 09:02] LABS: BILIRUBIN - TOTAL 0.23 mg/dL (0.2-1.3); PROTEIN - SERUM 6.2 g/dL (6.4-8.2)
[2019-12-24 11:10] VITALS: BP 107/60
== END 2019-12-24 11:10 | disposition home or self-care (01) ==
LOC: D.ER 08:29
PROVIDERS: Family Medicine
DX: S20.219A Contusion of unspecified front wall of thorax, initial encounter (principal); V89.2XXA Person injured in unspecified motor-vehicle accident, traffic, initial encounter; Y93.9 Activity, unspecified; Y92.9 Unspecified place or not applicable; R10.31 Right lower quadrant pain; E11.9 Type 2 diabetes mellitus without complications; J45.909 Unspecified asthma, uncomplicated; I50.9 Heart failure, unspecified; I11.0 Hypertensive heart disease with heart failure; F03.90 Unspecified dementia, unspecified severity, without behavioral disturbance, psychotic disturbance, mood disturbance, and anxiety

== ENCOUNTER → 2019-12-31 09:31 | Outpatient (CLI) | payer MEDICARE ==
[2019-12-24 08:32] VITALS: BMI 43.1
== END | disposition home or self-care (01) ==
LOC: D.HCCECHO 12-24 08:30
PROVIDERS: ATTEND Internal Medicine Cardiovascular Disease
DX: I25.10 Atherosclerotic heart disease of native coronary artery without angina pectoris (principal); I10 Essential (primary) hypertension